=== PATIENT | male | born 1960 | race Native Hawaiian/Other Pacific Islander ===

== ENCOUNTER 2017-07-10 22:06 | Inpatient (IN) | payer BC ==
[2017-07-10 22:09] VITALS: BMI 24.3
--- NOTE | 2017-07-10 22:21 | C.PDOC ---
History Of Present Illness 56 year old male is brought to the ED by EMS. Patient was found unresponsive at his home, found by his family who called EMS. On arrival patient was found to be alternating between asystole and PEA. Patient was intubated with a 7.5 ET tube, received a total of 6 epis and patient is now on a ROSC. Further history unable to be obtained. Time Seen by Provider: 07/10/17 22:20 Chief Complaint (Nursing): Cardiac Arrest History Per: EMS Reason For Code Blue: Full Arrest Circumstances: Brought To ED By EMS Arrest Witnessed By: No One CPR Initiated Prior To MD Arrival?: Yes Down-Time Before ACLS: Mins (poss 30 min) Treatment Initiated Prior To MD Arrival: Yes: CPR, Intubation, IVF, ACLS Medication Initiation, IV Access Medications Given Prior To MD Arrival: Yes: Epinephrine (6) - Initial Findings Mentation: Unresponsive Respirations: None (Assisted) Pulse: Weak Rhythm: Asystole (alternating with PEA initially, now nsr) Past Medical History Reviewed: Historical Data, Nursing Documentation, Vital Signs Vital Signs: Last Vital Signs Temp 97.7 F 07/10/17 22:09 Pulse 67 07/10/17 22:09 Resp 14 07/10/17 22:09 BP 115/37 L 07/10/17 22:09 Pulse Ox 82 L 07/10/17 23:49 - Medical History PMH: No Chronic Diseases Surgical History: No Surg Hx Family History: States: Unknown Family Hx - Social History Hx Tobacco Use: No Hx Alcohol Use: (UNKNOIWN) Hx Substance Use: (UNKNOWN) Review Of Systems Review Of Systems: ROS cannot be obtained secondary to pt's inabilty to answer questions. Physical Exam - Physical Exam Appears: Other (Unresponsive ) Skin: Warm, Dry, Other (no obvious signs of trauma ) Head: Normacephalic, Laceration (4 cm over right eyelid/eyeborw) Eye(s): bilateral: Other (pupils fixed and dialated) Ear(s): Bilateral: Normal Nose: No Septal Hematoma Oral Mucosa: Moist Tongue: Normal Appearing Lips: Normal Appearing Neck: Supple Chest: Symmetrical Cardiovascular: Rhythm Regular Respiratory: Decreased Breath Sounds (throughout), No Rales, Rhonchi, No Wheezing Gastrointestinal/Abdominal: Soft, Distention Back: Normal Inspection Extremity: No Pedal Edema, No Swelling, Other (no signs of trauma) Extremity: Bilateral: No Pedal Edema Pulses: Left Carotid: Normal, Right Carotid: Normal, Left Femoral: Normal, Right Femoral: Normal, Left Dorsalis Pedis: Normal, Right Dorsalis Pedis: Normal Neurological/Psych: Other (unresponsive , intubated) Gait: Unable To Assess ED Course And Treatment - Laboratory Results Result Diagrams: 07/10/17 22:30 07/10/17 22:30 ECG: Interpreted By Me, Viewed By Me ECG Rhythm: Sinus Rhythm, Nonspecific Changes (bifascicular block) O2 Sat by Pulse Oximetry: 82 Pulse Ox Interpretation: Abnormal - Radiology CXR: Interpreted by Me, Viewed By Me CXR Interpretation: Yes: Infiltrates (rll), Cardiomegaly, Other (chf, ett in place) Progress Note: spoke with dr colon, filer repairer, and was sent his ekg- does not meet criteria for code heart. changed ET tube via bugie due to damaged baloon. Replaced with a 7.5 ETT. Pt observed with seizure like activity, blinking his eyes. 2 mg iv ativan given. spoke with dr howe-icu- will come and see the pt at bedside. dr howe at bedside with the patient and family. increased peep to 10. still with some bloody froth suctioned from the ett Disposition Discussed With .: Umberto Swan Comment: accepted the pt [facility] is service and took over the care at 11:40 PM Doctor Will See Patient In The: ED Counseled Patient/Family Regarding: Studies Performed, Diagnosis - Disposition Disposition: HOSPITALIZED Disposition Time: 22:21 Condition: CRITICAL - Clinical Impression Clinical Impression: Cardiac arrest, Fall, Laceration Critical Care Time - Critical Care Note Total Time (in mins): 95 Documented critical care: time excludes all time spent performing seperately billable procedures. - Scribe Statement The provider has reviewed the documentation as recorded by the Scribe Kevin Ackerman All medical record entries made by the Scribe were at my direction and personally dictated by me. I have reviewed the chart and agree that the record accurately reflects my personal performance of the history, physical exam, medical decision making, and the department course for this patient. I have also personally directed, reviewed, and agree with the discharge instructions and disposition. Addendum Addendum: 05/24/18 23:23 As per family who is at bed side patient was getting ready to go to work tonight at 21:00, as per family patient spaced out and proceeded to fall into a cabinet where all the china in it broke and he sustained his laceration. All events occurred at around 21:00 and medics where called at 21:02.
[2017-07-10 22:27] LABS: ABG ALLEN TEST POS; ARTERIAL BLOOD GAS O2 SAT 88.6 % (95-98); ARTERIAL BLOOD GAS PCO2 137 mm/Hg (35-45); ARTERIAL BLOOD GAS PH < 6.80 (7.35-7.45); ARTERIAL BLOOD GAS PO2 90 mm/Hg (80-100)
[2017-07-10 22:35] LABS: BASO # 0.1 K/uL (0.0-0.2); BASO % 0.5 % (0.0-2.0); EOS # 0.2 K/uL (0.0-0.7); EOS % 1.6 % (0.0-4.0); HEMOGLOBIN 13.3 g/dL (12.0-18.0); LYMPH % 60.3 % (20.0-40.0); MEAN CELL VOLUME 106.4 fL (80.0-94.0); MEAN CORPUSCULAR HEMOGLOBIN 34.5 pg (27.0-31.0); MEAN CORPUSCULAR HGB CONC 32.5 g/dL (33.0-37.0); MEAN PLATELET VOLUME 8.7 fL (7.2-11.7); MONO # 0.6 K/uL (0.0-0.8); MONO % 5.7 % (0.0-10.0); NEUT # 3.2 K/uL (1.8-7.0); NEUT % 31.9 % (50.0-75.0); NRBC % 0.1 % (0.0-2.0); RBC 3.84 Mil/uL (4.40-5.90); RED CELL DISTRIBUTION WIDTH 13.8 % (11.5-14.5); WHITE BLOOD COUNT 9.9 K/uL (4.8-10.8)
[2017-07-10 22:43] LABS: INR 1.4; PROTHROMBIN TIME 15.6 SECONDS (9.7-12.2)
[2017-07-10] MEDS ORDERED: Sodium Chloride 0.9% 1,000 ML ONE (22:44)
[2017-07-10 22:48] LABS: ALB/GLOB RATIO 0.9 (1.0-2.1); ALBUMIN 3.1 g/dL (3.5-5.0); ALT/SGPT 33 U/L (21-72); AST/SGOT 89 U/L (17-59); BLOOD UREA NITROGEN 12 mg/dL (9-20); CALCIUM 8.6 mg/dl (8.6-10.4); GFR AFRICAN-AMERICAN > 60; GFR NON-AFRICAN AMERICAN 52
[2017-07-10] MEDS ORDERED: Piperacillin/Tazobact 3.375 gm 100 ML IVPB STA (22:57)
[2017-07-10 23:00] LABS: CK-MB 3.18 ng/mL (0.0-3.38)
[2017-07-10] MEDS ORDERED: Vancomycin 1 GM 1 GM/250 ML BAG IVPB SCH (23:00)
[2017-07-10] MEDS ORDERED: Piperacillin/Tazobact 3.375 gm 100 ML IVPB ONE (23:34)
--- NOTE | 2017-07-10 23:54 | CT ---
EXAM: CT Head Without Intravenous Contrast CLINICAL HISTORY: 56 years old, male; Pain and signs and symptoms; Alteration of consciousness and other: Cardiac arrest; Other: Fall TECHNIQUE: Axial computed tomography images of the head/brain without intravenous contrast. All CT scans at this facility use one or more dose reduction techniques, viz.: automated exposure control; ma/kV adjustment per patient size (including targeted exams where dose is matched to indication; i.e. head); or iterative reconstruction technique. COMPARISON: No relevant prior studies available. FINDINGS: Brain: Minimal atrophy. No intracranial hemorrhage. No mass. Minimal decreased attenuation within periventricular white matter. No definite edema. Ventricles: No hydrocephalus. Bones/joints: No acute fracture. Soft tissues: RIGHT periorbital/maxillary soft tissue swelling. Sinuses: Scattered mild mucosal thickening. Mastoid air cells: No mastoid effusion. Orbits: Unremarkable as visualized. Tubes, lines and devices: Endotracheal tube. IMPRESSION: 1. Nonspecific white matter changes. Acute infarction may be CT occult within first 24 hours. If a focal deficit persists, consider followup CT or MRI for further evaluation. 2. Incidental/non-acute findings are described above.
[2017-07-11] MEDS ORDERED: Sodium Chloride 0.9% 1,000 ML IV SCH
[2017-07-11] MEDS ORDERED: Vancomycin 1 gm/NS 200 ml 1 GM/200 ML BAG IVPB SCH
[2017-07-11] MEDS ORDERED: Piperacill/Tazo 2.25gm in Dex 2.25 GM/50 ML BAG IVPB SCH
[2017-07-11 00:18] LABS: ABG ALLEN TEST POS; ARTERIAL BLOOD GAS HCO3 9.2 mmol/L (21-28); ARTERIAL BLOOD GAS O2 SAT 79.9 % (95-98); ARTERIAL BLOOD GAS PCO2 94 mm/Hg (35-45); ARTERIAL BLOOD GAS PH 6.85 (7.35-7.45); ARTERIAL BLOOD GAS PO2 59 mm/Hg (80-100); ARTERIAL BLOOD GAS TCO2 19.3 mmol/L (22-28)
[2017-07-11] MEDS ORDERED: Bacitracin 500 Units/gm Oint Foilpak UD ONE (00:20)
[2017-07-11] MEDS ORDERED: Sodium Bicarbonate (8.4%) 50 Meq Syringe IVP ONE (00:29)
--- NOTE | 2017-07-11 00:33 | CP.PCM.HP ---
<Vinny Rosenberg - Last Filed: 07/11/17 04:33> History of Present Illness - History of Present Illness History of Present Illness: This is a 56 yo male with past medical hx of "enlarged heart" presenting to [facility] ER s/p cardiac arrest. Pt has achieved ROSC and is being transferred to ICU. History obtained from of pt. Pt is unresponsive. says that his primary care doctor is Dr. Keller but that he has not seen him for some time. She states years ago he was diagnosed with an enlarged heart and was taking an unknown medication. then says he was told by Dr. Rice (cardiology) that he could stop taking the medication. 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 Pt was feeling unwell, under the weather, general malaise, not really acting himself. Recently pt started complaining of body aches. says that patient began taking unknown antibiotic. was unable to tell me who prescribed this antibiotic for him. Tonight shortly before arrival, states pt was in bed. Got up out of bed and "zoned out." Pt then collapsed and fell forward into glass cabinet and then fell onto tile floor. Pt was bleeding profusely and unresponsive. immediately ran to call 911. says that pt did not make any complaints such as chest pain, dizziness, lightheaded, before passing out. Denies sick contacts. Denies recent travel. Pt was found to be alternating btw asystole and PEA, got 6 rounds of epinephrine in the field. Pt was intubated in the field. However, when pt arrived at ER- pt was noted to have flail chest and pt was subsequently re intubated. Pt also began having seizures in ER and was given total of 4 mg IV ativan. Pt is now unresponsive, on mechanical ventilation, getting fluids, no pressors currently, and antibiotics. PMD: Dr. Keller (unclear how often pt sees him) Specialists: Dr. Rice in [place]- cardiology- last visit 15 yrs ago PMH: "enlarged heart" PSH: Hernia repair - 10 yrs ago Allergies: NKDA FH: Mother- heart disease Home meds: was recently taking unknown abx/advil prn/mucinex prn Social hx: Former smoker. quit 10 yrs ago. says he smoked sporadically. social drinker. denies drug use. Born in [facility]. 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 Pet fish. Fully mobile normally and able to perform all ADLs. Lives in [place], [place]. Insurance: self pay Previous ER/hospitalizations: No record of previous visits. Present on Admission - Present on Admission Any Indicators Present on Admission: No History of DVT/PE: No History of Uncontrolled Diabetes: No Urinary Catheter: No Decubitus Ulcer Present: No Review of Systems - Review of Systems Systems not reviewed;Unavailable: Intubated Past Patient History - Infectious Disease Hx of Infectious Diseases: None - Tetanus Immunizations Tetanus Immunization: Unknown - Past Medical History & Family History Past Medical History?: Yes Pertinent Family History: Heart disease in family - Past Social History Smoking Status: Former Smoker Chewing Tobacco Use: No Cigar Use: No Alcohol: Occasional Drugs: Denies Home Situation {Lives}: With Family Domestic Violence: Negative - CARDIAC Other/Comment: ENLARGED HEART PER [facility], .. - PSYCHIATRIC Hx Substance Use: (UNKNOWN) - SURGICAL HISTORY Hx Herniorrhaphy: Yes - ANESTHESIA Hx Anesthesia: Yes Meds Allergies/Adverse Reactions: Allergies Allergy/AdvReac Type Severity Reaction Status Date / Time No Known Allergies Allergy Verified 07/10/17 23:30 Physical Exam - Constitutional Appears: In Acute Distress Additional comments: unresponsive - Head Exam Head Exam: NORMOCEPHALIC. absent: ATRAUMATIC, NORMAL INSPECTION Additional comments: laceration 4 cm over right eyebrow - Eye Exam Pupil Exam: Fixed, Mydriatic Additional comments: pupils fixed and dilated - Neck Exam Neck exam: Positive for: Normal Inspection - Respiratory Exam Respiratory Exam: Decreased Breath Sounds, Respiratory Distress Additional comments: pt is intubated and mechanically ventilated - Cardiovascular Exam Cardiovascular Exam: REGULAR RHYTHM, +S1, +S2 - GI/Abdominal Exam GI & Abdominal Exam: Normal Bowel Sounds, Soft - Extremities Exam Extremities exam: Positive for: normal inspection, pedal pulses present - Neurological Exam Neurological exam: Altered - Psychiatric Exam Additional comments: Unable to assess- pt intubated - Skin Skin Exam: Dry, Intact, Normal Color, Warm Results - Vital Signs Recent Vital Signs: Last Vital Signs Temp 97.7 F 07/10/17 22:09 Pulse 67 07/10/17 22:09 Resp 14 07/10/17 22:09 BP 115/37 L 07/10/17 22:09 Pulse Ox 82 L 07/11/17 00:25 - Labs Result Diagrams: 07/10/17 22:30 07/10/17 22:30 Labs: Laboratory Results - last 24 hr 07/10/17 07/10/17 07/10/17 22:20 22:30 22:30 WBC 9.9 RBC 3.84 L Hgb 13.3 Hct 40.8 MCV 106.4 H MCH 34.5 H MCHC 32.5 L RDW 13.8 Plt Count 81 L MPV 8.7 Neut % (Auto) 31.9 L Lymph % (Auto) 60.3 H [place] % (Auto) 5.7 Eos % (Auto) 1.6 Baso % (Auto) 0.5 Neut # (Auto) 3.2 Lymph # (Auto) 6.0 [place] # (Auto) 0.6 Eos # (Auto) 0.2 Baso # (Auto) 0.1 Differential Comment PT 15.6 H INR 1.4 APTT 82 H Puncture Site Rra pCO2 137 H* pO2 90 HCO3 ABG pH < 6.80 L* ABG Total CO2 ABG O2 Saturation 88.6 L ABG Base Excess Jordan Test Pos ABG Potassium 4.0 A-a O2 Difference 452.0 Respiratory Index 5.0 Sodium 144.0 Chloride 109.0 H Glucose 216 H Lactate 12.8 H* Vent Mode Prvc Mechanical Rate 16 FiO2 100.0 Tidal Volume 500 PEEP 5 Crit Value Called To Dr barnes Crit Value Called By [facility] Crit Value Read Back Y Blood Gas Notified Time 7 Potassium Carbon Dioxide Anion Gap BUN Creatinine Est GFR ( Amer) Est GFR (Non-Af Amer) Random Glucose Calcium Total Bilirubin AST ALT Alkaline Phosphatase Total Creatine Kinase CK-MB (Mass) Troponin I Total Protein Albumin Globulin Albumin/Globulin Ratio Arterial Blood Potassium 4.0 Blood Type Antibody Screen 07/10/17 07/10/17 07/11/17 22:30 22:30 00:14 WBC RBC Hgb Hct MCV MCH MCHC RDW Plt Count MPV Neut % (Auto) Lymph % (Auto) [place] % (Auto) Eos % (Auto) Baso % (Auto) Neut # (Auto) Lymph # (Auto) [place] # (Auto) Eos # (Auto) Baso # (Auto) Differential Comment PT INR APTT Puncture Site R r pCO2 94 H* pO2 59 L HCO3 9.2 L* ABG pH 6.85 L* ABG Total CO2 19.3 L ABG O2 Saturation 79.9 L ABG Base Excess -18.9 L Jordan Test Pos ABG Potassium 3.6 A-a O2 Difference 537.0 Respiratory Index 9.1 Sodium 147 148.0 Chloride 108 H 119.0 H Glucose 118 H Lactate 3.3 H Vent Mode Prvc Mechanical Rate 20 FiO2 100.0 Tidal Volume 500 PEEP 5 Crit Value Called To Dr barnes Crit Value Called By Nuris lopez rt Crit Value Read Back Y Blood Gas Notified Time 20 Potassium 4.4 Carbon Dioxide 16 L Anion Gap 27 H BUN 12 Creatinine 1.4 Est GFR ( Amer) > 60 Est GFR (Non-Af Amer) 52 Random Glucose 203 H Calcium 8.6 Total Bilirubin 0.6 AST 89 H ALT 33 Alkaline Phosphatase 112 Total Creatine Kinase 207 H CK-MB (Mass) 3.18 Troponin I 0.0950 Total Protein 6.6 Albumin 3.1 L Globulin 3.5 Albumin/Globulin Ratio 0.9 L Arterial Blood Potassium 3.6 Blood Type O POSITIVE Antibody Screen Negative Assessment & Plan - Assessment and Plan (Free Text) Assessment: This is a 56 yo male with past medical hx of "enlarged heart" presenting to [facility] ER by ambulance with 1. S/P cardiac arrest -Ari coma scale 3 -downtime of close to 30 minutes -signs of clinically anoxic brain injury -CT of orbits negative -abdomen pelvis chest CT shows scattered diffuse interstitial and alveolar opacities, cirrhosis, anterior mediastinal hematoma and rib fx, hemopericardium , mild cardiomegaly, liver lesion, perinephric stranding, recommend mri -soft tissue neck CT negative -head ct shows non specific white matter changes -urine drug screen pending -initial rhythm alternating btw asystole and PEA -given 6 rounds of epinephrine in the field -on mechanical ventilation -ABG shows pCO2 98, pO2 80, bicarb 21.9, ph 7.08, on Fio2 100, -no leukoyctosis, no anemia on initial labs -1st trop negative -BNP ordered -MRSA screen -100 meq of sodium bicarb given -right IJ triple lumen catheter placed by Dr. Mejía. -hypothermia contraindicated at this time bc of internal bleeding 2. Seizures -given 4 mg IV ativan in ER 3. Thrombocytopenia -platelets of 81 -avoid blood thinners and anticoagulants -fresh frozen plasma ordered 4. Elevated INR - reports pt is only an occasional drinker. -also hepatic lesion present, needs further assessment 5. R/O community acquired pneumonia/aspiration pneumonia -zosyn 3.375 g q 6 hrs IVPB -vancomycin 1 g q 12 hrs IV -CXR shows multilobar infiltrate -possibly secondary to aspiration vs. bleeding in airway GI/DVT ppx -protonix 40 iv daily -mechanical DVT ppx -otherwise anticoagulation contraindicated due to internal bleeding Patient condition: critical discussed with Dr. Swan <Umberto Swan - Last Filed: 07/11/17 06:33> Results - Vital Signs Recent Vital Signs: Last Vital Signs Temp 97.5 F L 07/11/17 01:11 Pulse 111 H 07/11/17 05:00 Resp 30 H 07/11/17 05:00 BP 102/59 L 07/11/17 04:58 Pulse Ox 90 L 07/11/17 05:00 - Labs Result Diagrams: 07/11/17 05:53 07/10/17 22:30 Labs: Laboratory Results - last 24 hr 07/10/17 07/10/17 07/10/17 22:20 22:30 22:30 WBC 9.9 RBC 3.84 L Hgb 13.3 Hct 40.8 MCV 106.4 H MCH 34.5 H MCHC 32.5 L RDW 13.8 Plt Count 81 L MPV 8.7 Neut % (Auto) 31.9 L Lymph % (Auto) 60.3 H [place] % (Auto) 5.7 Eos % (Auto) 1.6 Baso % (Auto) 0.5 Neut # (Auto) 3.2 Lymph # (Auto) 6.0 [place] # (Auto) 0.6 Eos # (Auto) 0.2 Baso # (Auto) 0.1 Differential Comment PT 15.6 H INR 1.4 APTT 82 H Puncture Site Rra pCO2 137 H* pO2 90 HCO3 ABG pH < 6.80 L* ABG Total CO2 ABG O2 Saturation 88.6 L ABG Base Excess Jordan Test Pos ABG Potassium 4.0 A-a O2 Difference 452.0 Respiratory Index 5.0 Sodium 144.0 Chloride 109.0 H Glucose 216 H Lactate 12.8 H* Vent Mode Prvc Mechanical Rate 16 FiO2 100.0 Tidal Volume 500 PEEP 5 Crit Value Called To Dr barnes Crit Value Called By Bonilla silverio Crit Value Read Back Y Blood Gas Notified Time 2227 Potassium Carbon Dioxide Anion Gap BUN Creatinine Est GFR ( Amer) Est GFR (Non-Af Amer) Random Glucose Calcium Total Bilirubin AST ALT Alkaline Phosphatase Total Creatine Kinase CK-MB (Mass) Troponin I Total Protein Albumin Globulin Albumin/Globulin Ratio Arterial Blood Potassium 4.0 Blood Type Antibody Screen 07/10/17 07/10/17 07/11/17 22:30 22:30 00:14 WBC RBC Hgb Hct MCV MCH MCHC RDW Plt Count MPV Neut % (Auto) Lymph % (Auto) [place] % (Auto) Eos % (Auto) Baso % (Auto) Neut # (Auto) Lymph # (Auto) [place] # (Auto) Eos # (Auto) Baso # (Auto) Differential Comment PT INR APTT Puncture Site R r pCO2 94 H* pO2 59 L HCO3 9.2 L* ABG pH 6.85 L* ABG Total CO2 19.3 L ABG O2 Saturation 79.9 L ABG Base Excess -18.9 L Jordan Test Pos ABG Potassium 3.6 A-a O2 Difference 537.0 Respiratory Index 9.1 Sodium 147 148.0 Chloride 108 H 119.0 H Glucose 118 H Lactate 3.3 H Vent Mode Prvc Mechanical Rate 20 FiO2 100.0 Tidal Volume 500 PEEP 5 Crit Value Called To Dr barnes Crit Value Called By Nuris lopez rt Crit Value Read Back Y Blood Gas Notified Time 20 Potassium 4.4 Carbon Dioxide 16 L Anion Gap 27 H BUN 12 Creatinine 1.4 Est GFR ( Amer) > 60 Est GFR (Non-Af Amer) 52 Random Glucose 203 H Calcium 8.6 Total Bilirubin 0.6 AST 89 H ALT 33 Alkaline Phosphatase 112 Total Creatine Kinase 207 H CK-MB (Mass) 3.18 Troponin I 0.0950 Total Protein 6.6 Albumin 3.1 L Globulin 3.5 Albumin/Globulin Ratio 0.9 L Arterial Blood Potassium 3.6 Blood Type O POSITIVE Antibody Screen Negative 07/11/17 07/11/17 07/11/17 01:17 05:29 05:53 WBC 21.2 H D RBC 3.46 L Hgb 11.7 L Hct 35.0 MCV 100.9 H D MCH 33.8 H MCHC 33.5 RDW 13.3 Plt Count 96 L MPV 8.2 Neut % (Auto) 84.1 H Lymph % (Auto) 8.3 L [place] % (Auto) 7.4 Eos % (Auto) 0.1 Baso % (Auto) 0.1 Neut # (Auto) 17.9 H Lymph # (Auto) 1.8 [place] # (Auto) 1.6 H Eos # (Auto) 0.0 Baso # (Auto) 0.0 Differential Comment PT INR APTT Puncture Site R bra R brac pCO2 98 H* 70 H pO2 80 59 L HCO3 21.9 16.8 L ABG pH 7.08 L* 7.09 L* ABG Total CO2 32.1 H 23.3 ABG O2 Saturation 94.5 L 88.5 L ABG Base Excess -3.6 L -9.7 L Jordan Test Na Na ABG Potassium 4.7 6.1 H A-a O2 Difference 511.0 567.0 Respiratory Index 6.4 9.6 Sodium 145.0 143.0 Chloride 111.0 H 111.0 H Glucose 137 H 100 Lactate 3.4 H 5.5 H* Vent Mode Prvc Prvc Mechanical Rate 20 20 FiO2 100.0 100.0 Tidal Volume 500 500 PEEP 10 10 Crit Value [facility] curriculum advisory teacher Loan martinez curriculum advisory teacher Crit Value Called By Nuris lopez rt Nuris lopez rt Crit Value Read Back Y Y Blood Gas Notified Time 135 620 Potassium Carbon Dioxide Anion Gap BUN Creatinine Est GFR ( Amer) Est GFR (Non-Af Amer) Random Glucose Calcium Total Bilirubin AST ALT Alkaline Phosphatase Total Creatine Kinase CK-MB (Mass) Troponin I Total Protein Albumin Globulin Albumin/Globulin Ratio Arterial Blood Potassium 4.7 6.1 H Blood Type Antibody Screen Assessment & Plan - Date & Time Date: 07/11/17 (I have seen and examined the patient. I agree with the findings and plan of care as documented by Dr. Rosenberg. Patient with cardiac arrest. On Vent. Admit to ICU. Seizure in ED. Ativan given. Also with thrombocytopenia and pneumonia. Possible aspiration pneumonia. On vanco and zosyn. Further management as per ICU. Monitor for acute changes.) Time: 06:32 Attending/Attestation - Attestation I have personally seen and examined this patient.: Yes I have fully participated in the care of the patient.: Yes I have reviewed all pertinent clinical information: Yes
--- NOTE | 2017-07-11 01:27 | CT ---
EXAM: CT Orbits Without Intravenous Contrast CLINICAL HISTORY: 56 years old, male; Pain and injury or trauma and signs and symptoms; Fall; Initial encounter; Amputation, traumatic; Head/scalp and ocular (eye or eyeball); Right; Eye pain and face pain TECHNIQUE: Axial computed tomography images of the orbits without intravenous contrast. All CT scans at this facility use one or more dose reduction techniques, viz.: automated exposure control; ma/kV adjustment per patient size (including targeted exams where dose is matched to indication; i.e. head); or iterative reconstruction technique. Coronal and sagittal reformatted images were created and reviewed. COMPARISON: No relevant prior studies available. FINDINGS: Limitations: Motion artifact - mild. Orbits: Unremarkable as visualized. Sinuses: Scattered mild mucosal thickening. No air-fluid levels. Bones/joints: Degenerative changes of cervical spine. No acute fracture. Soft tissues: RIGHT periorbital/maxillary soft tissue swelling. Tubes, lines and devices: Endotracheal tube. Orogastric tube. IMPRESSION: 1. No fracture. 2. Incidental/non-acute findings are described above.
[2017-07-11 01:32] LABS: ARTERIAL BLOOD GAS HCO3 21.9 mmol/L (21-28); ARTERIAL BLOOD GAS O2 SAT 94.5 % (95-98); ARTERIAL BLOOD GAS PCO2 98 mm/Hg (35-45); ARTERIAL BLOOD GAS PH 7.08 (7.35-7.45); ARTERIAL BLOOD GAS PO2 80 mm/Hg (80-100); ARTERIAL BLOOD GAS TCO2 32.1 mmol/L (22-28)
--- NOTE | 2017-07-11 01:33 | CT ---
EXAM: CT Cervical Spine Without Intravenous Contrast CLINICAL HISTORY: 56 years old, male; Injury or trauma and signs and symptoms; Fall; Initial encounter; Amputation, traumatic; Other: Fall, cardiac arrest TECHNIQUE: Axial computed tomography images of the cervical spine without intravenous contrast. All CT scans at this facility use one or more dose reduction techniques, viz.: automated exposure control; ma/kV adjustment per patient size (including targeted exams where dose is matched to indication; i.e. head); or iterative reconstruction technique. Coronal and sagittal reformatted images were created and reviewed. COMPARISON: No relevant prior studies available. FINDINGS: Limitations: Lack of intravenous contrast. Motion artifact - mild. Vertebrae: No acute fracture. Probable bone island. Straightening of cervical spine. Discs/spinal canal/neural foramina: Mild degenerative disc disease within lower cervical spine. Moderate indentation thecal sac/cord lower cervical spine. Neuroforaminal narrowing within lower cervical spine. Soft tissues: Unremarkable. Sinuses: Scattered mild mucosal thickening. Oropharynx: Apparent prominence of left palatine tonsil. Clinical correlation is needed. Lung apices: See chest CT report for additional details. Tubes, lines and devices: Endotracheal tube. Orogastric tube. IMPRESSION: 1. No fracture. 2. Incidental/non-acute findings are described above.
[2017-07-11] MEDS: Piperacill/Tazo 3.375gm in Dex 3.375 GM/50 ML BAG IVPB SCH ×2 (01:36→06:17)
--- NOTE | 2017-07-11 02:01 | CT ---
EXAM: CT Chest Without Intravenous Contrast CLINICAL HISTORY: 56 years old, male; Pain and injury or trauma and signs and symptoms; Fall; Initial encounter; Other: S/P cpr, bleeding in et, abd distension; Unconscious; Abdominal pain; Chest pain TECHNIQUE: Axial computed tomography images of the chest without intravenous contrast. All CT scans at this facility use one or more dose reduction techniques, viz.: automated exposure control; ma/kV adjustment per patient size (including targeted exams where dose is matched to indication; i.e. head); or iterative reconstruction technique. Coronal and sagittal reformatted images were created and reviewed. COMPARISON: No relevant prior studies available. FINDINGS: Limitations: Lack of intravenous contrast. Motion artifact - mild to moderate. Lungs: Moderate scattered areas of patchy nodular and confluent airspace with groundglass opacities. Pleural space: No pneumothorax. No significant effusion. Heart: Mild cardiomegaly. Small hyperdense pericardial effusion. Mediastinum: Small hyperdense fluid within anterior mediastinum. Bones/joints: Limited evaluation for nondisplaced fracture. Mildly displaced fracture left third rib. Soft tissues: Minimal diffuse stranding within subcutaneous tissues. Vasculature: Unremarkable. No aneurysm. Lymph nodes: No pathologically enlarged lymph nodes. Tubes, lines and devices: NG tube, tip within body of stomach. Endotracheal tube, tip located approximately 1.7 cm from kalin. IMPRESSION: 1. Scattered diffuse interstitial and alveolar opacities. Consider inflammatory, infectious, traumatic, and/or neoplastic etiologies. 2. Probable anterior mediastinal hematoma and hemopericardium. 3. Left rib fracture. 4. Incidental/non-acute findings are described above. EXAM: CT Abdomen and Pelvis Without Intravenous Contrast CLINICAL HISTORY: 56 years old, male; Pain and injury or trauma and signs and symptoms; Fall; Initial encounter; Other: S/P cpr, bleeding in et, abd distension; Unconscious; Abdominal pain; Chest pain TECHNIQUE: Axial computed tomography images of the abdomen and pelvis without intravenous contrast. All CT scans at this facility use one or more dose reduction techniques, viz.: automated exposure control; ma/kV adjustment per patient size (including targeted exams where dose is matched to indication; i.e. head); or iterative reconstruction technique. Coronal and sagittal reformatted images were created and reviewed. COMPARISON: No relevant prior studies available. FINDINGS: Limitations: Lack of intravenous contrast. Motion artifact - mild to moderate. Lung bases: No acute findings. ABDOMEN: Liver: Lobulated contour. Heterogeneous. Suggestion of hypodense large lesion within right lobe, poorly evaluated due to motion. Gallbladder and bile ducts: Calcified gallstone. No significant ductal dilation. Pancreas: Unremarkable. No ductal dilation. Spleen: No splenomegaly. Adrenals: No mass. Kidneys and ureters: [id number] stranding about kidneys, nonspecific. Small calculus within LEFT kidney. No hydronephrosis. Apparent 0.3 x 0.3 x 0.3 cm calculus within LEFT mid ureter. Stomach and bowel: No definite mural thickening. No obstruction. PELVIS: Appendix: No findings to suggest acute appendicitis. Bladder: Jones catheter. Minimal air within bladder lumen, likely iatrogenic. Apparent mild bladder wall thickening. Incomplete distention, limiting evaluation. Mild stranding about bladder. No stones. Reproductive: Unremarkable as visualized. ABDOMEN and PELVIS: Intraperitoneal space: Small free fluid within abdomen. Trace free fluid within pelvis. No free air. Bones/joints: Early degenerative changes of spine. No displaced fracture. Soft tissues: Left testis within inguinal canal. Small umbilical hernia containing fat. Minimal diffuse stranding within subcutaneous tissues. Vasculature: Mild atherosclerotic disease. No aneurysm. Lymph nodes: No pathologically enlarged lymph nodes. IMPRESSION: 1. Cirrhosis 2. Apparent liver lesion. Traumatic or neoplastic etiologies not excluded. Recommend MRI. 3. Cholelithiasis. 4. Perinephric stranding. Traumatic or infectious etiologies not excluded. 5. LEFT mid ureteral calculus without significant hydroureteronephrosis. 6. Apparent mild bladder wall thickening with adjacent stranding. Traumatic or infectious etiologies not excluded. 7. Incidental/non-acute findings are described above.
[2017-07-11] MEDS ORDERED: Phytonadione 10 mg/ml Inj (Adult) SC STA (02:05)
[2017-07-11] MEDS ORDERED: Bacitracin Ointment 30 GM TUBE TOP SCH (03:00)
--- NOTE | 2017-07-11 03:45 | CP.PCM.CON ---
History of Present Illness - History of Present Illness History of Present Illness: 56 M brought in ER post cardiac arrest, patient according to was just bit tired form some fever and was on abx, has h/o enlarged heart but not on medications, got up from sleep to go for evening shift, got ready and then zoned out. Patient fell on the Hillman cabinet and then face forward on the floor , the [place]man and cabinet fell on the patient, he didn't respond, there was blood around. This happened about 9:05 pm, ems reached about 9:10pm. As per EMS patient was found PEA to asystole, patient received 6 rounds of epi, intubated in the field. Patient needed to be reintubated in ER due loose cuff, with help or bugie. CO2 retention noticed, patient was bleeding from ET tube, has laceration on his right eye brow with swelling. Patient is unresponsive, brief irratic movements, no purposeful movements. Has minimal gag, bleeding from ET tube noticed, bright red. OG tube passed, bilious contents obtained. CXR shows b /l infiltrates dd of pulm aspiration, contusion. Labs showed elevated MCV and low platelets will confirm alcohol history from the family. 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 Review of Systems - Review of Systems Systems not reviewed;Unavailable: Intubated All systems: reviewed and no additional remarkable complaints except (HPI) Past Patient History - Infectious Disease Hx of Infectious Diseases: None - Past Social History Smoking Status: Former Smoker - CARDIAC Other/Comment: ENLARGED HEART PER [facility], .. - PSYCHIATRIC Hx Substance Use: (UNKNOWN) - SURGICAL HISTORY Hx Herniorrhaphy: Yes - ANESTHESIA Hx Anesthesia: Yes Meds Allergies/Adverse Reactions: Allergies Allergy/AdvReac Type Severity Reaction Status Date / Time No Known Allergies Allergy Verified 07/10/17 23:30 - Medications Medications: Current Medications Vancomycin HCl (Vancomycin 1gm In Normal Saline Addvantage) 1 gm in 250 mls @ 166.667 mls/hr IVPB STAT JAIME PRN Reason: Protocol Sodium Chloride (Sodium Chloride 0.9%) 1,000 mls @ 100 mls/hr IV .Q10H JAIME Vancomycin/Sodium Chloride (Vancomycin 1 Gm/Ns 200 Ml) 1 gm in 200 mls @ 133 mls/hr IVPB Q12H JAIME PRN Reason: Protocol Stop: 07/16/17 00:01 Piperacillin Sod/Tazobactam Sod (Zosyn 3.375 Gm Iv Premix) 3.375 gm in 50 mls @ 100 mls/hr IVPB Q6H JAIME PRN Reason: Protocol Lorazepam (Ativan) 2 mg IVP STAT STA Stop: 07/10/17 22:46 Lorazepam (Ativan) 2 mg IVP ONCE ONE Stop: 07/10/17 23:06 Pantoprazole Sodium (Protonix Inj) 40 mg IVP DAILY [facility] Physical Exam - Additional Findings Additional findings: * HEENT No pupilary response, no corneal or conjunctival resposnse, 2 inch laceration with hematoma on the right eyebrow * Neck supple * Chest some petechae on the chest wall, rattling noise b/l, ET secretions, bright red, intermittent, weak gag present * PA distended * Ext no edema * 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, no unresponsive, irratic respirations * Skin normal turgor Results - Vital Signs Recent Vital Signs: Last Vital Signs Temp 97.7 F 07/10/17 22:09 Pulse 67 07/10/17 22:09 Resp 14 07/10/17 22:09 BP 115/37 L 07/10/17 22:09 Pulse Ox 82 L 07/10/17 23:49 - Labs Result Diagrams: 07/10/17 22:30 07/10/17 22:30 Labs: Laboratory Results - last 24 hr 07/10/17 07/10/17 07/10/17 22:20 22:30 22:30 WBC 9.9 RBC 3.84 L Hgb 13.3 Hct 40.8 MCV 106.4 H MCH 34.5 H MCHC 32.5 L RDW 13.8 Plt Count 81 L MPV 8.7 Neut % (Auto) 31.9 L Lymph % (Auto) 60.3 H Ross % (Auto) 5.7 Eos % (Auto) 1.6 Baso % (Auto) 0.5 Neut # (Auto) 3.2 Lymph # (Auto) 6.0 H Ross # (Auto) 0.6 Eos # (Auto) 0.2 Baso # (Auto) 0.1 Differential Comment PT 15.6 H INR 1.4 APTT 82 H Puncture Site Rra pCO2 137 H* pO2 90 ABG pH < 6.80 L* ABG O2 Saturation 88.6 L Jordan Test Pos ABG Potassium 4.0 A-a O2 Difference 452.0 Respiratory Index 5.0 Sodium 144.0 Chloride 109.0 H Glucose 216 H Lactate 12.8 H* Vent Mode Prvc Mechanical Rate 16 FiO2 100.0 Tidal Volume 500 PEEP 5 Crit Value Called To Dr barnes Crit Value Called By [facility] Crit Value Read Back Y Blood Gas Notified Time 2226 Potassium Carbon Dioxide Anion Gap BUN Creatinine Est GFR ( Amer) Est GFR (Non-Af Amer) Random Glucose Calcium Total Bilirubin AST ALT Alkaline Phosphatase Total Creatine Kinase CK-MB (Mass) Troponin I Total Protein Albumin Globulin Albumin/Globulin Ratio Arterial Blood Potassium 4.0 Blood Type Antibody Screen 07/10/17 07/10/17 22:30 22:30 WBC RBC Hgb Hct MCV MCH MCHC RDW Plt Count MPV Neut % (Auto) Lymph % (Auto) Ross % (Auto) Eos % (Auto) Baso % (Auto) Neut # (Auto) Lymph # (Auto) Ross # (Auto) Eos # (Auto) Baso # (Auto) Differential Comment PT INR APTT Puncture Site pCO2 pO2 ABG pH ABG O2 Saturation Jordan Test ABG Potassium A-a O2 Difference Respiratory Index Sodium 147 Chloride 108 H Glucose Lactate Vent Mode Mechanical Rate FiO2 Tidal Volume PEEP Crit Value Called To Crit Value Called By Crit Value Read Back Blood Gas Notified Time Potassium 4.4 Carbon Dioxide 16 L Anion Gap 27 H BUN 12 Creatinine 1.4 Est GFR ( Amer) > 60 Est GFR (Non-Af Amer) 52 Random Glucose 203 H Calcium 8.6 Total Bilirubin 0.6 AST 89 H ALT 33 Alkaline Phosphatase 112 Total Creatine Kinase 207 H CK-MB (Mass) 3.18 Troponin I 0.0950 Total Protein 6.6 Albumin 3.1 L Globulin 3.5 Albumin/Globulin Ratio 0.9 L Arterial Blood Potassium Blood Type O POSITIVE Antibody Screen Negative Assessment & Plan - Assessment and Plan (Free Text) Assessment: * Cardiac arrest, with downtime close to 30min, with clinically anoxic damage, dd of CO2 retention, reducing responsiveness * bleeding likely through ET, right eyebrow hematoma, pericardial bleeding from trauma, cpr, * Thrombocypenia, slight elevated INR, raised MCV may have hepatic etiology, according to not current drinker, ? hepatic tumor on non contrast CT * Multilobar infiltrate needing 100% fio2, due to aspiration vs bleeding in airway * ? history of enlarged heart as per family. Plan: * Appears poor prognosis with gcs close to 3, family in shock * Supportive care * transfusion of platelets, ffp * Empiric abx for pna * gi prophylaxis * Mechanical dvt prophylaxis * Central line inserted due to critical condition * Therapeutic hypothermia contraindicated due to active uncontrolable internal bleeding. * See orders for detail.
[2017-07-11] MEDS ORDERED: Sodium Chloride 0.9% 500 ML IV ONE (03:46)
--- NOTE | 2017-07-11 03:50 | PCM.PROC ---
Procedures Attestation:: I certify that I have explained the specified Operation(s) or Procedure(s), risks, benefits and reasonable alternatives to the Patient and/or other person responsible. The opportunity was given to ask questions and all questions answered - Central Line Placement Right Internal Jugular Triple Lumen Catheter Aseptic technique was employed throughout the procedure: Hand Hygiene done prior to procedure, Full sterile barriers (mask, hair cover, sterile gown, sterile gloves), Full body sterile drape, Chloraprep Antiseptic: 30 second prep for IJ or SC sites CVP Time Out Performed: Yes Pt. Placed on Pulse Ox Monitor: Yes Central Line Prep: Chlorhexidine-Alcohol Combination Amount of Anesthesia Used (mls): 0 Ultrasound Used for Placement: Yes Central Line Lumen Inserted: triple Central Line Length: 16 cm Post Procedure: Sutured in Place, Good Blood Return, All Ports Aspirated, Flushed, Capped, Sterile Dressing Applied Secured by: Suture Post procedure dressing: Clear vapor permeable, Chlorhexidine disc (Biopatch) Post Procedure X-Ray: Yes Immediate Complications: None
[2017-07-11 06:17] LABS: ARTERIAL BLOOD GAS HCO3 16.8 mmol/L (21-28); ARTERIAL BLOOD GAS O2 SAT 88.5 % (95-98); ARTERIAL BLOOD GAS PCO2 70 mm/Hg (35-45); ARTERIAL BLOOD GAS PH 7.09 (7.35-7.45); ARTERIAL BLOOD GAS PO2 59 mm/Hg (80-100); ARTERIAL BLOOD GAS TCO2 23.3 mmol/L (22-28)
[2017-07-11 06:17] LABS: BASO % 0.1 % (0.0-2.0); EOS % 0.1 % (0.0-4.0); HEMOGLOBIN 11.7 g/dL (12.0-18.0); LYMPH # 1.8 K/uL (1.0-4.3); LYMPH % 8.3 % (20.0-40.0); MEAN CELL VOLUME 100.9 fL (80.0-94.0); MEAN CORPUSCULAR HEMOGLOBIN 33.8 pg (27.0-31.0); MEAN CORPUSCULAR HGB CONC 33.5 g/dL (33.0-37.0); MEAN PLATELET VOLUME 8.2 fL (7.2-11.7); MONO # 1.6 K/uL (0.0-0.8); MONO % 7.4 % (0.0-10.0); NEUT # 17.9 K/uL (1.8-7.0); NEUT % 84.1 % (50.0-75.0); NRBC % 0.1 % (0.0-2.0); PLATELET COUNT 96 K/uL (130-400); RBC 3.46 Mil/uL (4.40-5.90); RED CELL DISTRIBUTION WIDTH 13.3 % (11.5-14.5); WHITE BLOOD COUNT 21.2 K/uL (4.8-10.8)
[2017-07-11 06:40] VITALS: TEMP 98.1
[2017-07-11 06:40] LABS: ALB/GLOB RATIO 0.8 (1.0-2.1); ALBUMIN 2.8 g/dL (3.5-5.0); CALCIUM 7.1 mg/dl (8.6-10.4)
--- NOTE | 2017-07-11 07:03 | RAD ---
HISTORY: post TLC insertion COMPARISON: Portable chest 07/10/2017. FINDINGS: Endotracheal tube is unchanged in position. A nasogastric tube is now placed entering into left upper quadrant abdomen with the side hole at the region of the gastric viscus. The tip is off the image. Further, a right center venous lines in place with tip turning the superior vena cava. LUNGS: A persistent patchy infiltrate is seen at the mid right lung zone extending inferiorly with limited patchy density now present the left apex and perihilar region. PLEURA: No significant pleural effusion identified, no pneumothorax apparent. CARDIOVASCULAR: Cardiac silhouette is stable, however, vascular pattern is obscured by infiltrate bilaterally. OSSEOUS STRUCTURES: No significant abnormalities. VISUALIZED UPPER ABDOMEN: Normal. OTHER FINDINGS: None. IMPRESSION: Interval nasogastric tube and right center venous line placements in good apparent position with persistent right perihilar infiltrate and interval left upper lobe/ perihilar infiltrate present at this time.
--- NOTE | 2017-07-11 07:32 | RAD ---
Chest x-ray single frontal view History: Intubated. Comparison: None available. Findings: Endotracheal tube extending into the midthoracic trachea approximately 2 centimeters above the kalin. Prominent patchy airspace consolidative changes in the right mid to lower lung zone as well as within the left suprahilar region and left lung base. Tortuous ectatic aorta. Cardiomegaly. Degenerative changes in the spine. Multiple overlying external wires and tubing. Impression: Endotracheal tube extending into the midthoracic trachea approximately 2 centimeters above the kalin. Prominent patchy airspace consolidative changes in the right mid to lower lung zone as well as within the left suprahilar region and left lung base. Tortuous ectatic aorta. Cardiomegaly. Degenerative changes in the spine.
[2017-07-11] MEDS ORDERED: Rocuronium 10 mg/ml (5 ml) ONE (07:39)
[2017-07-11] MEDS ORDERED: Dextrose 50% SYRINGE Inj (50 ml) ONE (07:39)
[2017-07-11] MEDS ORDERED: Magnesium Sulfate 1 gm/100 mL D5W IVPB ONE (07:39)
[2017-07-11] MEDS ORDERED: Calcium Gluconate 4.65 mEq/10 ml Inj ONE (07:39)
[2017-07-11] MEDS ORDERED: Sodium Bicarbonate (8.4%) 50 Meq Syringe ONE ×3 (07:39→09:14)
[2017-07-11] MEDS ORDERED: EPINEPHrine- 1 MG in Sodium Chloride 0.9% 250 ML IV PRN (07:40)
[2017-07-11 08:14] LABS: ARTERIAL BLOOD GAS HCO3 10.8 mmol/L (21-28); ARTERIAL BLOOD GAS O2 SAT 59.7 % (95-98); ARTERIAL BLOOD GAS PCO2 78 mm/Hg (35-45); ARTERIAL BLOOD GAS PH 6.95 (7.35-7.45); ARTERIAL BLOOD GAS PO2 38 mm/Hg (80-100); ARTERIAL BLOOD GAS TCO2 19.5 mmol/L (22-28)
[2017-07-11] MEDS ORDERED: DOBUTamine 500mg/250ml D5W 500 MG/250 ML BAG IV SCH (08:30)
[2017-07-11] MEDS ORDERED: Meropenem IV 1 gm in NS 50 ML IVPB ONE (08:33)
[2017-07-11] MEDS ORDERED: Sodium Bicarbonate (8.4%) 50 Meq Syringe IVP SCH (08:45)
[2017-07-11 08:47] LABS: BASO % 0.3 % (0.0-2.0); EOS % 0.1 % (0.0-4.0); LYMPH % 11.2 % (20.0-40.0); MEAN CELL VOLUME 102.7 fL (80.0-94.0); MEAN CORPUSCULAR HGB CONC 33.1 g/dL (33.0-37.0); MEAN PLATELET VOLUME 8.2 fL (7.2-11.7); MONO # 1.1 K/uL (0.0-0.8); NEUT % 82.4 % (50.0-75.0); NRBC % 0.2 % (0.0-2.0); RBC 2.76 Mil/uL (4.40-5.90); RED CELL DISTRIBUTION WIDTH 13.7 % (11.5-14.5); WHITE BLOOD COUNT 18.2 K/uL (4.8-10.8)
--- NOTE | 2017-07-11 08:49 | RAD ---
HISTORY: CP arrest COMPARISON: Portable chest 07/11/2017. FINDINGS: LUNGS: Endotracheal and nasogastric tubes do not appear significantly changed in position with right central venous line again evident. Increased infiltrates in the right perihilar and left upper or/perihilar lung zones once again. PLEURA: No significant pleural effusion identified, no pneumothorax apparent. CARDIOVASCULAR: Cardiac silhouette appears stable. Opacity from infiltrates obscures bilateral hilar vascular markings. Clinically correlate for potential CHF, however, no interstitial changes are identified that would support that diagnosis. OSSEOUS STRUCTURES: No significant abnormalities. VISUALIZED UPPER ABDOMEN: Normal. OTHER FINDINGS: None. IMPRESSION: Increased left upper lung zone and bilateral perihilar infiltrates. Stable cardiomegaly.
[2017-07-11 08:58] LABS: BANDS 15 % (0-2); LYMPHOCYTE 7 % (20-40); MONOCYTE 5 % (0-10); NEUTROPHIL 73 % (50-75); TOTAL CELLS COUNTED 100
[2017-07-11 08:59] LABS: PLATELET ESTIMATE DECREASED (NORMAL)
[2017-07-11 09:00] LABS: ANISOCYTOSIS SLIGHT; HYPOCHROMIC SLIGHT; POLYCHROMIC SLIGHT; TOXIC GRANULATION PRESENT
[2017-07-11 09:00] LABS: ALB/GLOB RATIO 0.9 (1.0-2.1); ALBUMIN 2.4 g/dL (3.5-5.0); CALCIUM 8.3 mg/dl (8.6-10.4); HEMOGLOBIN 9.4 g/dL (12.0-18.0)
[2017-07-11 09:04] LABS: ARTERIAL BLOOD GAS HCO3 10.5 mmol/L (21-28); ARTERIAL BLOOD GAS O2 SAT 48.6 % (95-98); ARTERIAL BLOOD GAS PCO2 92 mm/Hg (35-45); ARTERIAL BLOOD GAS PH 6.91 (7.35-7.45); ARTERIAL BLOOD GAS PO2 33 mm/Hg (80-100); ARTERIAL BLOOD GAS TCO2 21.2 mmol/L (22-28)
[2017-07-11 09:14] LABS: ARTERIAL BLOOD GAS HCO3 21.9 mmol/L (21-28); ARTERIAL BLOOD GAS O2 SAT 35.2 % (95-98); ARTERIAL BLOOD GAS PCO2 118 mm/Hg (35-45); ARTERIAL BLOOD GAS PH 7.05 (7.35-7.45); ARTERIAL BLOOD GAS PO2 28 mm/Hg (80-100); ARTERIAL BLOOD GAS TCO2 36.2 mmol/L (22-28)
[2017-07-11 09:49] LABS: TROPONIN I 11.6 ng/mL (0.00-0.120)
[2017-07-11 10:19] VITALS: BP 56/39
--- NOTE | 2017-07-11 10:45 | CP.PCM.CON ---
History of Present Illness - History of Present Illness History of Present Illness: Sawyer Mccall PGY1 Cardiology Consult Note for Dr. Cabrera Mr. Reece is a 56yo male with an unclear history of an "enlarged heart" with possible cardiomyopathy per who was brought in s/p PEA arrest. Per , the patient was not feeling well for the last couple of weeks and complained of overall fatigue, cough and cold symptoms, and had been taking an antibiotic ( but unsure of where he got it from); she also states that the patient was on a medication for his heart when he was in [place], but was told that he can come off of it when he moved to by Dr. Rice. 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 Per prior documentation, "patient was found PEA to asystole, patient received 6 rounds of epi, intubated in the field. Patient needed to be reintubated in ER due loose cuff, with help or bugie. CO2 retention noticed, patient was bleeding from ET tube, had laceration on his right eye brow with swelling. Patient was unresponsive, brief irratic movements, no purposeful movements. Had minimal gag , bleeding from ET tube noticed, bright red". ROSC was obtained in ED. Patient was transferred to ICU unit. EKG on presentation showed sinus rhythm w/ 1st degree AV block and bifascicular block. CT head showed no acute hemorrhage. Orbital CT showed no acute fractures. CT chest/avd/pelvis showed Scattered diffuse interstitial and alveolar opacities, cirrhosis, liver lesion, mural thickening of proximal esophagus and mild stranding within bruce hepatis about gallbladder. ABG at that time showed severe acidosis with pH <6.8 w/ CO2 retention and lactate 12.8. follow-up ABG showed mild improvement. Troponin was not elevated at this time. This morning, the patient coded and team responded and ACLS was started. Cardiology was consulted at this time. ABG showed severe acidosis, hypoxia and CO2 retention; lactate was again elevated. CBC showed leukocytosis w/ bandemia. CXR Showed Increased left upper lung zone and bilateral perihilar infiltrates. ROSC was obtained. Troponin and stat echo were ordered at this time. Patient coded again and ACLS was activated with multiple rounds of epinephrine given. ROSC was unable to be obtained. Discussion was had with the family by myself, ICU attending and palliative care, and understood poor prognosis and did not want him to suffer anymore. Please refer to ICU note/nurse's notes for full details. PM: as above PSH: hernia ALL: NKDA Shx: former smoker, social drinker Review of Systems - Review of Systems Systems not reviewed;Unavailable: Acuity of Condition, Unstable Vital Signs, Intubated Past Patient History - Infectious Disease Hx of Infectious Diseases: None - Tetanus Immunizations Tetanus Immunization: Unknown - Past Medical History & Family History Past Medical History?: Yes - Past Social History Smoking Status: Former Smoker Chewing Tobacco Use: No Cigar Use: No Alcohol: Occasional Drugs: Denies Home Situation {Lives}: With Family Domestic Violence: Negative - CARDIAC Other/Comment: ENLARGED HEART PER [facility], .. - PULMONARY Hx Respiratory Disorders: No - NEUROLOGICAL Hx Neurological Disorder: No - HEENT Hx HEENT Problems: No - RENAL Hx Chronic Kidney Disease: No - ENDOCRINE/METABOLIC Hx Endocrine Disorders: No - HEMATOLOGICAL/ONCOLOGICAL Hx Blood Disorders: No - INTEGUMENTARY Hx Dermatological Problems: No - MUSCULOSKELETAL/RHEUMATOLOGICAL Hx Falls: Yes - GASTROINTESTINAL Hx Gastrointestinal Disorders: No - GENITOURINARY/GYNECOLOGICAL Hx Genitourinary Disorders: No - PSYCHIATRIC Hx Psychophysiologic Disorder: No - SURGICAL HISTORY Hx Herniorrhaphy: Yes - ANESTHESIA Hx Anesthesia: Yes Meds Allergies/Adverse Reactions: Allergies Allergy/AdvReac Type Severity Reaction Status Date / Time No Known Allergies Allergy Verified 07/10/17 23:30 - Medications Medications: Current Medications Bacitracin (Bacitracin) 0 gm TOP BID JAIME Vancomycin/Sodium Chloride (Vancomycin 1 Gm/Ns 200 Ml) 1 gm in 200 mls @ 133 mls/hr IVPB Q12H JAIME PRN Reason: Protocol Stop: 07/16/17 00:01 Last Admin: 07/11/17 02:47 Dose: 133 mls/hr Piperacillin Sod/Tazobactam Sod (Zosyn 3.375 Gm Iv Premix) 3.375 gm in 50 mls @ 100 mls/hr IVPB Q6H JAIME PRN Reason: Protocol Last Admin: 07/11/17 06:17 Dose: 100 mls/hr Epinephrine HCl 1 mg/ Sodium (Chloride) 251 mls @ 15.06 mls/hr IV .[id number] PRN ; Protocol; 1 MCG/MIN PRN Reason: TITRATE PER MD ORDER Dobutamine HCl/Dextrose (Dobutamine/Dextrose 5% 500mg/250ml) 500 mg in 250 mls @ 6.753 mls/hr IV .Q24H JAIME; 2.5 MCG/KG/MIN PRN Reason: Protocol Last Admin: 07/11/17 08:30 Dose: 2.5 mcg/kg/min, 6.753 mls/hr Bumetanide 10 mg/ Sodium (Chloride) 100 mls @ 1 mls/hr IV .Q24H JAIME PRN Reason: 0.1 MG/HR Pantoprazole Sodium (Protonix Inj) 40 mg IVP DAILY JAIME Sodium Bicarbonate (Sodium Bicarbonate (8.4%) 50 Meq Syringe) 50 meq IVP Q2H JAIME Physical Exam - Additional Findings Additional findings: could not be obtained due to acuity of condition Results - Vital Signs Recent Vital Signs: Last Vital Signs Temp 98.1 F 07/11/17 06:00 Pulse 109 H 07/11/17 07:50 Resp 25 H 07/11/17 07:50 BP 56/39 L 07/11/17 08:30 Pulse Ox 59 L 07/11/17 07:50 - Labs Result Diagrams: 07/11/17 08:41 07/11/17 08:41 Labs: Laboratory Results - last 24 hr 07/10/17 07/10/17 07/10/17 22:20 22:30 22:30 WBC 9.9 RBC 3.84 L Hgb 13.3 Hct 40.8 MCV 106.4 H MCH 34.5 H MCHC 32.5 L RDW 13.8 Plt Count 81 L MPV 8.7 Neut % (Auto) 31.9 L Lymph % (Auto) 60.3 H [place] % (Auto) 5.7 Eos % (Auto) 1.6 Baso % (Auto) 0.5 Neut # (Auto) 3.2 Lymph # (Auto) 6.0 H [place] # (Auto) 0.6 Eos # (Auto) 0.2 Baso # (Auto) 0.1 Neutrophils % (Manual) Band Neutrophils % Lymphocytes % (Manual) Monocytes % (Manual) Differential Comment Toxic Granulation Platelet Estimate Polychromasia Hypochromasia (manual) Anisocytosis (manual) Macrocytosis (manual) PT 15.6 H INR 1.4 APTT 82 H Puncture Site Rra pCO2 137 H* pO2 90 HCO3 ABG pH < 6.80 L* ABG Total CO2 ABG O2 Saturation 88.6 L ABG Base Excess Jordan Test Pos ABG Potassium 4.0 A-a O2 Difference 452.0 Respiratory Index 5.0 Sodium 144.0 Chloride 109.0 H Glucose 216 H Lactate 12.8 H* Vent Mode Prvc Mechanical Rate 16 FiO2 100.0 Tidal Volume 500 PEEP 5 Crit Value Called To Dr barnes Crit Value Called By Bonilla silverio Crit Value Read Back Y Blood Gas Notified Time 2227 Potassium Carbon Dioxide Anion Gap BUN Creatinine Est GFR ( Amer) Est GFR (Non-Af Amer) POC Glucose (mg/dL) Random Glucose Calcium Phosphorus Magnesium Total Bilirubin AST ALT Alkaline Phosphatase Total Creatine Kinase CK-MB (Mass) Troponin I Total Protein Albumin Globulin Albumin/Globulin Ratio Arterial Blood Potassium 4.0 Blood Type Antibody Screen 07/10/17 07/10/17 07/11/17 22:30 22:30 00:14 WBC RBC Hgb Hct MCV MCH MCHC RDW Plt Count MPV Neut % (Auto) Lymph % (Auto) [place] % (Auto) Eos % (Auto) Baso % (Auto) Neut # (Auto) Lymph # (Auto) [place] # (Auto) Eos # (Auto) Baso # (Auto) Neutrophils % (Manual) Band Neutrophils % Lymphocytes % (Manual) Monocytes % (Manual) Differential Comment Toxic Granulation Platelet Estimate Polychromasia Hypochromasia (manual) Anisocytosis (manual) Macrocytosis (manual) PT INR APTT Puncture Site R r pCO2 94 H* pO2 59 L HCO3 9.2 L* ABG pH 6.85 L* ABG Total CO2 19.3 L ABG O2 Saturation 79.9 L ABG Base Excess -18.9 L Jordan Test Pos ABG Potassium 3.6 A-a O2 Difference 537.0 Respiratory Index 9.1 Sodium 147 148.0 Chloride 108 H 119.0 H Glucose 118 H Lactate 3.3 H Vent Mode Prvc Mechanical Rate 20 FiO2 100.0 Tidal Volume 500 PEEP 5 Crit Value Called To Dr barnes Crit Value Called By Nuris lopez rt Crit Value Read Back Y Blood Gas Notified Time 20 Potassium 4.4 Carbon Dioxide 16 L Anion Gap 27 H BUN 12 Creatinine 1.4 Est GFR ( Amer) > 60 Est GFR (Non-Af Amer) 52 POC Glucose (mg/dL) Random Glucose 203 H Calcium 8.6 Phosphorus Magnesium Total Bilirubin 0.6 AST 89 H ALT 33 Alkaline Phosphatase 112 Total Creatine Kinase 207 H CK-MB (Mass) 3.18 Troponin I 0.0950 Total Protein 6.6 Albumin 3.1 L Globulin 3.5 Albumin/Globulin Ratio 0.9 L Arterial Blood Potassium 3.6 Blood Type O POSITIVE Antibody Screen Negative 07/11/17 07/11/17 07/11/17 01:17 05:29 05:53 WBC 21.2 H D RBC 3.46 L Hgb 11.7 L Hct 35.0 MCV 100.9 H D MCH 33.8 H MCHC 33.5 RDW 13.3 Plt Count 96 L MPV 8.2 Neut % (Auto) 84.1 H Lymph % (Auto) 8.3 L [place] % (Auto) 7.4 Eos % (Auto) 0.1 Baso % (Auto) 0.1 Neut # (Auto) 17.9 H Lymph # (Auto) 1.8 [place] # (Auto) 1.6 H Eos # (Auto) 0.0 Baso # (Auto) 0.0 Neutrophils % (Manual) 73 Band Neutrophils % 15 H* Lymphocytes % (Manual) 7 L Monocytes % (Manual) 5 Differential Comment Toxic Granulation Present Platelet Estimate Decreased L Polychromasia Slight Hypochromasia (manual) Slight Anisocytosis (manual) Slight Macrocytosis (manual) Slight PT INR APTT Puncture Site R bra R brac pCO2 98 H* 70 H pO2 80 59 L HCO3 21.9 16.8 L ABG pH 7.08 L* 7.09 L* ABG Total CO2 32.1 H 23.3 ABG O2 Saturation 94.5 L 88.5 L ABG Base Excess -3.6 L -9.7 L Jordan Test Na Na ABG Potassium 4.7 6.1 H A-a O2 Difference 511.0 567.0 Respiratory Index 6.4 9.6 Sodium 145.0 143.0 Chloride 111.0 H 111.0 H Glucose 137 H 100 Lactate 3.4 H 5.5 H* Vent Mode Prvc Prvc Mechanical Rate 20 20 FiO2 100.0 100.0 Tidal Volume 500 500 PEEP 10 10 Crit Value Called To [facility] agricultural equipment sales manager Loan martinez agricultural equipment sales manager Crit Value Called By Nuris lopez rt Nuris lopez rt Crit Value Read Back Y Y Blood Gas Notified Time 135 620 Potassium Carbon Dioxide Anion Gap BUN Creatinine Est GFR ( Amer) Est GFR (Non-Af Amer) POC Glucose (mg/dL) Random Glucose Calcium Phosphorus Magnesium Total Bilirubin AST ALT Alkaline Phosphatase Total Creatine Kinase CK-MB (Mass) Troponin I Total Protein Albumin Globulin Albumin/Globulin Ratio Arterial Blood Potassium 4.7 6.1 H Blood Type Antibody Screen 07/11/17 07/11/17 07/11/17 05:55 07:48 08:10 WBC RBC Hgb Hct MCV MCH MCHC RDW Plt Count MPV Neut % (Auto) Lymph % (Auto) [place] % (Auto) Eos % (Auto) Baso % (Auto) Neut # (Auto) Lymph # (Auto) [place] # (Auto) Eos # (Auto) Baso # (Auto) Neutrophils % (Manual) Band Neutrophils % Lymphocytes % (Manual) Monocytes % (Manual) Differential Comment Toxic Granulation Platelet Estimate Polychromasia Hypochromasia (manual) Anisocytosis (manual) Macrocytosis (manual) PT INR APTT Puncture Site L Line pCO2 118 H* 78 H* pO2 28 L* 38 L* HCO3 21.9 10.8 L ABG pH 7.05 L* 6.95 L* ABG Total CO2 36.2 H 19.5 L ABG O2 Saturation 35.2 L 59.7 L ABG Base Excess -1.4 -16.1 L [place] Test Na Na ABG Potassium 5.3 H 3.3 L A-a O2 Difference 538.0 578.0 Respiratory Index 19.2 15.2 Sodium 145 152.0 H 155.0 H Chloride 110 H 111.0 H 119.0 H Glucose 54 L 93 Lactate 11.9 H* 10.3 H* Vent Mode Prvc Mechanical Rate 26 FiO2 100.0 100.0 Tidal Volume 600 PEEP 10 Crit Value Called To Dr binh purcell Crit Value Called By Jamaal schmitt procedure analyst Jamaal schmitt procedure analyst Crit Value Read Back Y Y Blood Gas Notified Time 750 815 Potassium 5.3 H Carbon Dioxide 24 Anion Gap 17 BUN 16 Creatinine 2.1 H Est GFR ( Amer) 40 Est GFR (Non-Af Amer) 33 POC Glucose (mg/dL) Random Glucose 97 Calcium 7.1 L Phosphorus 8.9 H Magnesium 2.1 Total Bilirubin 1.0 AST 154 H D ALT 54 Alkaline Phosphatase 117 Total Creatine Kinase CK-MB (Mass) Troponin I Total Protein 6.2 L Albumin 2.8 L Globulin 3.4 Albumin/Globulin Ratio 0.8 L Arterial Blood Potassium 5.3 H 3.3 L Blood Type Antibody Screen 07/11/17 07/11/17 07/11/17 08:41 08:41 08:42 WBC 18.2 H RBC 2.76 L Hgb 9.4 L D Hct 28.3 L MCV 102.7 H MCH 34.0 H MCHC 33.1 RDW 13.7 Plt Count 78 L MPV 8.2 Neut % (Auto) 82.4 H Lymph % (Auto) 11.2 L [place] % (Auto) 6.0 Eos % (Auto) 0.1 Baso % (Auto) 0.3 Neut # (Auto) 15.0 H Lymph # (Auto) 2.0 [place] # (Auto) 1.1 H Eos # (Auto) 0.0 Baso # (Auto) 0.0 Neutrophils % (Manual) Band Neutrophils % Lymphocytes % (Manual) Monocytes % (Manual) Differential Comment Toxic Granulation Platelet Estimate Polychromasia Hypochromasia (manual) Anisocytosis (manual) Macrocytosis (manual) PT INR APTT Puncture Site pCO2 pO2 HCO3 ABG pH ABG Total CO2 ABG O2 Saturation ABG Base Excess Jordan Test ABG Potassium A-a O2 Difference Respiratory Index Sodium 156 H Chloride 106 Glucose Lactate Vent Mode Mechanical Rate FiO2 Tidal Volume PEEP Crit Value Called To Crit Value Called By Crit Value Read Back Blood Gas Notified Time Potassium 4.2 Carbon Dioxide 27 Anion Gap 27 H BUN 17 Creatinine 2.6 H Est GFR ( Amer) 31 Est GFR (Non-Af Amer) 26 POC Glucose (mg/dL) 99 Random Glucose 97 Calcium 8.3 L Phosphorus 9.4 H Magnesium 2.5 H Total Bilirubin 0.9 AST 156 H ALT 44 Alkaline Phosphatase 74 Total Creatine Kinase CK-MB (Mass) Troponin I 11.6000 H* Total Protein 5.0 L Albumin 2.4 L Globulin 2.6 Albumin/Globulin Ratio 0.9 L Arterial Blood Potassium Blood Type Antibody Screen 07/11/17 09:00 WBC RBC Hgb Hct MCV MCH MCHC RDW Plt Count MPV Neut % (Auto) Lymph % (Auto) [place] % (Auto) Eos % (Auto) Baso % (Auto) Neut # (Auto) Lymph # (Auto) [place] # (Auto) Eos # (Auto) Baso # (Auto) Neutrophils % (Manual) Band Neutrophils % Lymphocytes % (Manual) Monocytes % (Manual) Differential Comment Toxic Granulation Platelet Estimate Polychromasia Hypochromasia (manual) Anisocytosis (manual) Macrocytosis (manual) PT INR APTT Puncture Site Line pCO2 92 H* pO2 33 L* HCO3 10.5 L ABG pH 6.91 L* ABG Total CO2 21.2 L ABG O2 Saturation 48.6 L ABG Base Excess -16.0 L [place] Test Na ABG Potassium 2.9 L A-a O2 Difference 565.0 Respiratory Index 17.1 Sodium 156.0 H Chloride 118.0 H Glucose 64 L Lactate 13.7 H* Vent Mode Prvc Mechanical Rate 26 FiO2 100.0 Tidal Volume 600 PEEP 10 Crit Value Called To Dr hardeep purcell Crit Value Called By Dianna hickman it applications developer Crit Value Read Back Y Blood Gas Notified Time 904 Potassium Carbon Dioxide Anion Gap BUN Creatinine Est GFR ( Amer) Est GFR (Non-Af Amer) POC Glucose (mg/dL) Random Glucose Calcium Phosphorus Magnesium Total Bilirubin AST ALT Alkaline Phosphatase Total Creatine Kinase CK-MB (Mass) Troponin I Total Protein Albumin Globulin Albumin/Globulin Ratio Arterial Blood Potassium 2.9 L Blood Type Antibody Screen Assessment & Plan - Assessment and Plan (Free Text) Assessment: 56yo M with a PMH of questionable cardiomyopathy and diastolic dysfunction, who presented s/p PE arrest, ROSC was obtained but patient coded again multiple times without ROSC being obtained. cardiac arrest - ROSC could not be obtained and patient ceased - comfort care to family - Echo pending official read - attempted to contact Dr. Rice but no answer - management per ICU team Patient was reviewed and discussed with Dr. Cabrera
--- NOTE | 2017-07-11 10:52 | PCM.PROC ---
Procedures Attestation:: I certify that I have explained the specified Operation(s) or Procedure(s), risks, benefits and reasonable alternatives to the Patient and/or other person responsible. The opportunity was given to ask questions and all questions answered - Arterial Line Left Radial Aseptic technique was employed throughout the procedure: Hand Hygiene done prior to procedure, Full sterile barriers (mask, hair cover, sterile gown, sterile gloves), Chloraprep Antiseptic: 30 second prep for IJ or SC sites Time Out Performed: Yes Pt. placed on Pulse Ox Monitor: Yes Technique Used: Guide Wire Technique Secured by: Suture Post procedure dressing: Chlorhexidine disc (Biopatch) Patient Tolerated Procedure: no complications Immediate Complications: none
--- NOTE | 2017-07-11 11:01 | CP.PCM.CON ---
History of Present Illness - History of Present Illness History of Present Illness: Palliative consult requested by Doctor Clarke for goals of care discussion Patient is a 56 yo male admitted from home after sudden fall. 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 called 911 . Patient was found Asystolic on field, CPR initiated, intubated and brought to ED, than to ICU. It is estimated 30 min down time according to reports and patient is diagnosed with severe anoxic injury post cardiac arrest. The CT abdomen showed liver lesions At ICU patient was Coded at least 4 times since this morning. Palliative care was called to support family and discuss withdrawal of interventions as harm was outweighing benefices. PMH: enlarged heart, resent bad cold, was on antibiotics Soc. Hx. , lives with and daughter, denied drinking Fam. Hx: Father from HTN Review of Systems - Review of Systems All systems: reviewed and no additional remarkable complaints except Review of Systems: CPR at present Past Patient History - Infectious Disease Hx of Infectious Diseases: None - Tetanus Immunizations Tetanus Immunization: Unknown - Past Medical History & Family History Past Medical History?: Yes - Past Social History Smoking Status: Former Smoker Chewing Tobacco Use: No Cigar Use: No Alcohol: Occasional Drugs: Denies Home Situation {Lives}: With Family Domestic Violence: Negative - CARDIAC Other/Comment: ENLARGED HEART PER [facility], .. - MUSCULOSKELETAL/RHEUMATOLOGICAL Hx Falls: Yes - PSYCHIATRIC Hx Substance Use: (UNKNOWN) - SURGICAL HISTORY Hx Herniorrhaphy: Yes - ANESTHESIA Hx Anesthesia: Yes Meds Allergies/Adverse Reactions: Allergies Allergy/AdvReac Type Severity Reaction Status Date / Time No Known Allergies Allergy Verified 07/10/17 23:30 - Medications Medications: Current Medications Bacitracin (Bacitracin) 0 gm TOP BID JAIME Vancomycin/Sodium Chloride (Vancomycin 1 Gm/Ns 200 Ml) 1 gm in 200 mls @ 133 mls/hr IVPB Q12H JAIME PRN Reason: Protocol Stop: 07/16/17 00:01 Last Admin: 07/11/17 02:47 Dose: 133 mls/hr Piperacillin Sod/Tazobactam Sod (Zosyn 3.375 Gm Iv Premix) 3.375 gm in 50 mls @ 100 mls/hr IVPB Q6H JAIME PRN Reason: Protocol Last Admin: 07/11/17 06:17 Dose: 100 mls/hr Epinephrine HCl 1 mg/ Sodium (Chloride) 251 mls @ 15.06 mls/hr IV .[id number] PRN ; Protocol; 1 MCG/MIN PRN Reason: TITRATE PER MD ORDER Dobutamine HCl/Dextrose (Dobutamine/Dextrose 5% 500mg/250ml) 500 mg in 250 mls @ 6.753 mls/hr IV .Q24H JAIME; 2.5 MCG/KG/MIN PRN Reason: Protocol Last Admin: 07/11/17 08:30 Dose: 2.5 mcg/kg/min, 6.753 mls/hr Bumetanide 10 mg/ Sodium (Chloride) 100 mls @ 1 mls/hr IV .Q24H JAIME PRN Reason: 0.1 MG/HR Pantoprazole Sodium (Protonix Inj) 40 mg IVP DAILY JAIME Sodium Bicarbonate (Sodium Bicarbonate (8.4%) 50 Meq Syringe) 50 meq IVP Q2H JAIME Physical Exam - Constitutional Appears: No Acute Distress - Head Exam Additional comments: right orbital hematoma - Eye Exam Pupil Exam: Fixed - ENT Exam Additional comments: Intubated - Respiratory Exam Additional comments: on MV - Cardiovascular Exam Cardiovascular Exam: Irregular Rhythm Additional comments: CPR in progress - Rectal Exam Rectal Exam: Deferred - Extremities Exam Extremities exam: Positive for: normal inspection - Back Exam Back exam: NORMAL INSPECTION - Neurological Exam Neurological exam: Motor Sensory Deficit - Psychiatric Exam Psychiatric exam: Flat Affect - Skin Skin Exam: Pallor Results - Vital Signs Recent Vital Signs: Last Vital Signs Temp 98.1 F 07/11/17 06:00 Pulse 109 H 07/11/17 07:50 Resp 25 H 07/11/17 07:50 BP 56/39 L 07/11/17 08:30 Pulse Ox 59 L 07/11/17 07:50 - Labs Result Diagrams: 07/11/17 08:41 07/11/17 08:41 Labs: Laboratory Results - last 24 hr 07/10/17 07/10/17 07/10/17 22:20 22:30 22:30 WBC 9.9 RBC 3.84 L Hgb 13.3 Hct 40.8 MCV 106.4 H MCH 34.5 H MCHC 32.5 L RDW 13.8 Plt Count 81 L MPV 8.7 Neut % (Auto) 31.9 L Lymph % (Auto) 60.3 H Mcclain % (Auto) 5.7 Eos % (Auto) 1.6 Baso % (Auto) 0.5 Neut # (Auto) 3.2 Lymph # (Auto) 6.0 H Mcclain # (Auto) 0.6 Eos # (Auto) 0.2 Baso # (Auto) 0.1 Neutrophils % (Manual) Band Neutrophils % Lymphocytes % (Manual) Monocytes % (Manual) Differential Comment Toxic Granulation Platelet Estimate Polychromasia Hypochromasia (manual) Anisocytosis (manual) Macrocytosis (manual) PT 15.6 H INR 1.4 APTT 82 H Puncture Site Rra pCO2 137 H* pO2 90 HCO3 ABG pH < 6.80 L* ABG Total CO2 ABG O2 Saturation 88.6 L ABG Base Excess Jordan Test Pos ABG Potassium 4.0 A-a O2 Difference 452.0 Respiratory Index 5.0 Sodium 144.0 Chloride 109.0 H Glucose 216 H Lactate 12.8 H* Vent Mode Prvc Mechanical Rate 16 FiO2 100.0 Tidal Volume 500 PEEP 5 Crit Value Called To Dr barnes Crit Value Called By [facility] Crit Value Read Back Y Blood Gas Notified Time 2227 Potassium Carbon Dioxide Anion Gap BUN Creatinine Est GFR ( Amer) Est GFR (Non-Af Amer) POC Glucose (mg/dL) Random Glucose Calcium Phosphorus Magnesium Total Bilirubin AST ALT Alkaline Phosphatase Total Creatine Kinase CK-MB (Mass) Troponin I Total Protein Albumin Globulin Albumin/Globulin Ratio Arterial Blood Potassium 4.0 Blood Type Antibody Screen 07/10/17 07/10/17 07/11/17 22:30 22:30 00:14 WBC RBC Hgb Hct MCV MCH MCHC RDW Plt Count MPV Neut % (Auto) Lymph % (Auto) Mcclain % (Auto) Eos % (Auto) Baso % (Auto) Neut # (Auto) Lymph # (Auto) Mcclain # (Auto) Eos # (Auto) Baso # (Auto) Neutrophils % (Manual) Band Neutrophils % Lymphocytes % (Manual) Monocytes % (Manual) Differential Comment Toxic Granulation Platelet Estimate Polychromasia Hypochromasia (manual) Anisocytosis (manual) Macrocytosis (manual) PT INR APTT Puncture Site R r pCO2 94 H* pO2 59 L HCO3 9.2 L* ABG pH 6.85 L* ABG Total CO2 19.3 L ABG O2 Saturation 79.9 L ABG Base Excess -18.9 L Jordan Test Pos ABG Potassium 3.6 A-a O2 Difference 537.0 Respiratory Index 9.1 Sodium 147 148.0 Chloride 108 H 119.0 H Glucose 118 H Lactate 3.3 H Vent Mode Prvc Mechanical Rate 20 FiO2 100.0 Tidal Volume 500 PEEP 5 Crit Value Called To Dr barnes Crit Value Called By Nuris lopez rt Crit Value Read Back Y Blood Gas Notified Time 20 Potassium 4.4 Carbon Dioxide 16 L Anion Gap 27 H BUN 12 Creatinine 1.4 Est GFR ( Amer) > 60 Est GFR (Non-Af Amer) 52 POC Glucose (mg/dL) Random Glucose 203 H Calcium 8.6 Phosphorus Magnesium Total Bilirubin 0.6 AST 89 H ALT 33 Alkaline Phosphatase 112 Total Creatine Kinase 207 H CK-MB (Mass) 3.18 Troponin I 0.0950 Total Protein 6.6 Albumin 3.1 L Globulin 3.5 Albumin/Globulin Ratio 0.9 L Arterial Blood Potassium 3.6 Blood Type O POSITIVE Antibody Screen Negative 07/11/17 07/11/17 07/11/17 01:17 05:29 05:53 WBC 21.2 H D RBC 3.46 L Hgb 11.7 L Hct 35.0 MCV 100.9 H D MCH 33.8 H MCHC 33.5 RDW 13.3 Plt Count 96 L MPV 8.2 Neut % (Auto) 84.1 H Lymph % (Auto) 8.3 L Mcclain % (Auto) 7.4 Eos % (Auto) 0.1 Baso % (Auto) 0.1 Neut # (Auto) 17.9 H Lymph # (Auto) 1.8 Mcclain # (Auto) 1.6 H Eos # (Auto) 0.0 Baso # (Auto) 0.0 Neutrophils % (Manual) 73 Band Neutrophils % 15 H* Lymphocytes % (Manual) 7 L Monocytes % (Manual) 5 Differential Comment Toxic Granulation Present Platelet Estimate Decreased L Polychromasia Slight Hypochromasia (manual) Slight Anisocytosis (manual) Slight Macrocytosis (manual) Slight PT INR APTT Puncture Site R bra R brac pCO2 98 H* 70 H pO2 80 59 L HCO3 21.9 16.8 L ABG pH 7.08 L* 7.09 L* ABG Total CO2 32.1 H 23.3 ABG O2 Saturation 94.5 L 88.5 L ABG Base Excess -3.6 L -9.7 L Jordan Test Na Na ABG Potassium 4.7 6.1 H A-a O2 Difference 511.0 567.0 Respiratory Index 6.4 9.6 Sodium 145.0 143.0 Chloride 111.0 H 111.0 H Glucose 137 H 100 Lactate 3.4 H 5.5 H* Vent Mode Prvc Prvc Mechanical Rate 20 20 FiO2 100.0 100.0 Tidal Volume 500 500 PEEP 10 10 Crit Value [facility] agriculture extension specialist Loan martinez agriculture extension specialist Crit Value Called By Nuris lopez rt Nuris lopez rt Crit Value Read Back Y Y Blood Gas Notified Time 135 620 Potassium Carbon Dioxide Anion Gap BUN Creatinine Est GFR ( Amer) Est GFR (Non-Af Amer) POC Glucose (mg/dL) Random Glucose Calcium Phosphorus Magnesium Total Bilirubin AST ALT Alkaline Phosphatase Total Creatine Kinase CK-MB (Mass) Troponin I Total Protein Albumin Globulin Albumin/Globulin Ratio Arterial Blood Potassium 4.7 6.1 H Blood Type Antibody Screen 07/11/17 07/11/17 07/11/17 05:55 07:48 08:10 WBC RBC Hgb Hct MCV MCH MCHC RDW Plt Count MPV Neut % (Auto) Lymph % (Auto) Mcclain % (Auto) Eos % (Auto) Baso % (Auto) Neut # (Auto) Lymph # (Auto) Mcclain # (Auto) Eos # (Auto) Baso # (Auto) Neutrophils % (Manual) Band Neutrophils % Lymphocytes % (Manual) Monocytes % (Manual) Differential Comment Toxic Granulation Platelet Estimate Polychromasia Hypochromasia (manual) Anisocytosis (manual) Macrocytosis (manual) PT INR APTT Puncture Site L Line pCO2 118 H* 78 H* pO2 28 L* 38 L* HCO3 21.9 10.8 L ABG pH 7.05 L* 6.95 L* ABG Total CO2 36.2 H 19.5 L ABG O2 Saturation 35.2 L 59.7 L ABG Base Excess -1.4 -16.1 L Jordan Test Na Na ABG Potassium 5.3 H 3.3 L A-a O2 Difference 538.0 578.0 Respiratory Index 19.2 15.2 Sodium 145 152.0 H 155.0 H Chloride 110 H 111.0 H 119.0 H Glucose 54 L 93 Lactate 11.9 H* 10.3 H* Vent Mode Prvc Mechanical Rate 26 FiO2 100.0 100.0 Tidal Volume 600 PEEP 10 Crit Value Called To Dr binh purcell Crit Value Called By Jamaal schmitt geriatric case manager Jamaal schmitt geriatric case manager Crit Value Read Back Y Y Blood Gas Notified Time 750 815 Potassium 5.3 H Carbon Dioxide 24 Anion Gap 17 BUN 16 Creatinine 2.1 H Est GFR ( Amer) 40 Est GFR (Non-Af Amer) 33 POC Glucose (mg/dL) Random Glucose 97 Calcium 7.1 L Phosphorus 8.9 H Magnesium 2.1 Total Bilirubin 1.0 AST 154 H D ALT 54 Alkaline Phosphatase 117 Total Creatine Kinase CK-MB (Mass) Troponin I Total Protein 6.2 L Albumin 2.8 L Globulin 3.4 Albumin/Globulin Ratio 0.8 L Arterial Blood Potassium 5.3 H 3.3 L Blood Type Antibody Screen 07/11/17 07/11/17 07/11/17 08:41 08:41 08:42 WBC 18.2 H RBC 2.76 L Hgb 9.4 L D Hct 28.3 L MCV 102.7 H MCH 34.0 H MCHC 33.1 RDW 13.7 Plt Count 78 L MPV 8.2 Neut % (Auto) 82.4 H Lymph % (Auto) 11.2 L Mcclain % (Auto) 6.0 Eos % (Auto) 0.1 Baso % (Auto) 0.3 Neut # (Auto) 15.0 H Lymph # (Auto) 2.0 Mcclain # (Auto) 1.1 H Eos # (Auto) 0.0 Baso # (Auto) 0.0 Neutrophils % (Manual) Band Neutrophils % Lymphocytes % (Manual) Monocytes % (Manual) Differential Comment Toxic Granulation Platelet Estimate Polychromasia Hypochromasia (manual) Anisocytosis (manual) Macrocytosis (manual) PT INR APTT Puncture Site pCO2 pO2 HCO3 ABG pH ABG Total CO2 ABG O2 Saturation ABG Base Excess Jordan Test ABG Potassium A-a O2 Difference Respiratory Index Sodium 156 H Chloride 106 Glucose Lactate Vent Mode Mechanical Rate FiO2 Tidal Volume PEEP Crit Value Called To Crit Value Called By Crit Value Read Back Blood Gas Notified Time Potassium 4.2 Carbon Dioxide 27 Anion Gap 27 H BUN 17 Creatinine 2.6 H Est GFR ( Amer) 31 Est GFR (Non-Af Amer) 26 POC Glucose (mg/dL) 99 Random Glucose 97 Calcium 8.3 L Phosphorus 9.4 H Magnesium 2.5 H Total Bilirubin 0.9 AST 156 H ALT 44 Alkaline Phosphatase 74 Total Creatine Kinase CK-MB (Mass) Troponin I 11.6000 H* Total Protein 5.0 L Albumin 2.4 L Globulin 2.6 Albumin/Globulin Ratio 0.9 L Arterial Blood Potassium Blood Type Antibody Screen 07/11/17 09:00 WBC RBC Hgb Hct MCV MCH MCHC RDW Plt Count MPV Neut % (Auto) Lymph % (Auto) Mcclain % (Auto) Eos % (Auto) Baso % (Auto) Neut # (Auto) Lymph # (Auto) Mcclain # (Auto) Eos # (Auto) Baso # (Auto) Neutrophils % (Manual) Band Neutrophils % Lymphocytes % (Manual) Monocytes % (Manual) Differential Comment Toxic Granulation Platelet Estimate Polychromasia Hypochromasia (manual) Anisocytosis (manual) Macrocytosis (manual) PT INR APTT Puncture Site Line pCO2 92 H* pO2 33 L* HCO3 10.5 L ABG pH 6.91 L* ABG Total CO2 21.2 L ABG O2 Saturation 48.6 L ABG Base Excess -16.0 L Jordan Test Na ABG Potassium 2.9 L A-a O2 Difference 565.0 Respiratory Index 17.1 Sodium 156.0 H Chloride 118.0 H Glucose 64 L Lactate 13.7 H* Vent Mode Prvc Mechanical Rate 26 FiO2 100.0 Tidal Volume 600 PEEP 10 Crit Value Called To Dr nehemias purcell Crit Value Called By Dianna hickman reconditioner Crit Value Read Back Y Blood Gas Notified Time 904 Potassium Carbon Dioxide Anion Gap BUN Creatinine Est GFR ( Amer) Est GFR (Non-Af Amer) POC Glucose (mg/dL) Random Glucose Calcium Phosphorus Magnesium Total Bilirubin AST ALT Alkaline Phosphatase Total Creatine Kinase CK-MB (Mass) Troponin I Total Protein Albumin Globulin Albumin/Globulin Ratio Arterial Blood Potassium 2.9 L Blood Type Antibody Screen Assessment & Plan - Assessment and Plan (Free Text) Plan: Palliative consult Full Code, no advance directive on the chart, PPS 0% I reviewed medical recrds and all dagnstic studies. Exam was not possible as CPR was in progress. When I arrived to ICU at 9 am this morning, CPR was in progress for this man whose pulse was lost. The STAT ABGs were abnormal for acidosis, patient was retaining Co2 despite all aggressive measures. Patient was bleeding from the trach and nose. Doctor nehemias Purcell did not feel that continuing CPR any further was beneficial for the patient. I accompanied Doctor Nehemias Purcell to waiting room where he shared information with , daughter and brother in law. Eventhough overwhelmed by pain, shock and sorrow, family was united in decision that further interventions to be stopped. aid she did not want her to suffer any mote if meaningful recovery was not expected. I took family to private room and offer my support. At 9 : 10 am, patient's heart stopped beating. This news was delivered to family by Doctor Nehemias Purcell. I stayed with family and offered support until their Traveling Plant Operator came. Bereavement refreshment offered to a family. ME called and protocol fallowed. The option of autopsy discussed with family. Family refused. Family only wanted to visit patient for the last time when he was cleaned and presentable as they wanted to remember him in best possible way. This was shared with Nursing staff. signed POLST, choosing DNR/DNI and asked for ET tube to be removed. Impression * Anoxic injury, S/P cardiac arrest resulting in * Family in distress * Family decided to stop any further aggressive interventions including CPR and intubation * Family does not wish autopsy to be done * Suggestion * Support for family Advance care planing time 45 min
--- NOTE | 2017-07-11 11:46 | CP.PCM.PRO ---
Pronouncement of Note - Clinical Findings Physical Exam: No Response Verbal/Painful Stimuli, Absent Peripheral Pulses{ Carotid & Femoral}, Absent Heart & Breath Sounds, No Pupillary Light Reflex, Pupils Fixed & Dilated - Pronouncement Time Time of Pronouncement of : 09:10 - Notifications Pronouncement Notifications: Family Notified Twisting Frame Operator Notified: Yes
--- NOTE | 2017-07-11 11:51 | PCM.RRT ---
RUG INSPECTOR HELPER Nurses Assessment - Situation Date: 07/11/17 Time RUG INSPECTOR HELPER was called: 07:38 RUG INSPECTOR HELPER Responder Arrival Time:: 07:38 Room Number: Bed 5 - IC RUG INSPECTOR HELPER Called By: RN - IV IV Inserted during RUG INSPECTOR HELPER?: No - Respiratory RUG INSPECTOR HELPER Delivery Method: Intubated (Patient already Intubated) Secretions Suctioned?: Yes Was the Patient Intubated?: Yes (Patient Intubated on the Field Before Admission.) - Ventilator Settings Mode: PRVC Ventilator Respiratory Rate Settin Ventilator Tidal Volume Settin PEEP/CPAP (cm H2O): 10 SAO2 %: 91 FIO2 (% Oxygen): 100 - Diagnostic Test Ordered Chest X-Ray: Yes CT Scan: No - Stat Labs Ordered RUG INSPECTOR HELPER Stat Labs Ordered: CBC, BMP, PT/PTT, TROPONIN, ABG CPR started during RUG INSPECTOR HELPER?: Yes - Time RUG INSPECTOR HELPER Ended Time RUG INSPECTOR HELPER Ended: 09:10 - Vital Signs at end of RUG INSPECTOR HELPER Vital Signs at end of RUG INSPECTOR HELPER: Patient pronounced I.Reason for RUG INSPECTOR HELPER - A) Acute Change in Patient: Subjective: Code Blue Note: Code Nicholas called at 7:38 for PEA. 3 Codes called in all total. 2 A-lines started in between Codes Labs Ordered: CBC, CMP, Mg, Phos, ABG x 3, Troponins Imaging Ordered: ECHO, Portable CXR. Code # 1 Compressions started at 7:38 Epinephrine x 4, Epinephrine Drip started. 7 total Amps of Sodium Bicarb, 2 Amps of Calcium Gluconate, Lasix 80mg IV, Recuronium, D50 1 AMP Code # 2 Epinephrine IV x 2, 1 AMP Sodium Bicarb, 1 Amp Calcium Gluconate, Bumex x 3mg IV , Dobutamine Drip Started. Code #3 Paced Rhythym x 4, Epinephrine x 6, Calcium Gluconate x 1, Sodium Bicarb x 2, Magnesium x 1, D50x 1 Code Called at 9:10. Time of 9:10 AM. - Eyes Eye Exam: absent: PERRL - Respiratory Exam Additional comments: No Breath Sounds - Cardiovascular Exam Cardiovascular Exam: absent: +S1, +S2 Plan - Assessment of Findings&Treatment Plan Time of - 9:10
--- NOTE | 2017-07-11 13:18 | CP.PCM.DIS ---
Provider - Provider Date of Admission: 07/10/17 23:47 Attending physician: Umberto Swan MD Primary care physician: Giuseppe Keller MD Time Spent in preparation of Discharge (in minutes): 40 Hospital Course - Lab Results Lab Results: Most Recent Lab Values WBC 18.2 K/uL (4.8-10.8) H 07/11/17 08:41 RBC 2.76 Mil/uL (4.40-5.90) L 07/11/17 08:41 Hgb 9.4 g/dL (12.0-18.0) L D 07/11/17 08:41 Hct 28.3 % (35.0-51.0) L 07/11/17 08:41 MCV 102.7 fL (80.0-94.0) H 07/11/17 08:41 MCH 34.0 pg (27.0-31.0) H 07/11/17 08:41 MCHC 33.1 g/dL (33.0-37.0) 07/11/17 08:41 RDW 13.7 % (11.5-14.5) 07/11/17 08:41 Plt Count 78 K/uL (130-400) L 07/11/17 08:41 MPV 8.2 fL (7.2-11.7) 07/11/17 08:41 Neut % (Auto) 82.4 % (50.0-75.0) H 07/11/17 08:41 Lymph % (Auto) 11.2 % (20.0-40.0) L 07/11/17 08:41 Real % (Auto) 6.0 % (0.0-10.0) 07/11/17 08:41 Eos % (Auto) 0.1 % (0.0-4.0) 07/11/17 08:41 Baso % (Auto) 0.3 % (0.0-2.0) 07/11/17 08:41 Neut # (Auto) 15.0 K/uL (1.8-7.0) H 07/11/17 08:41 Lymph # (Auto) 2.0 K/uL (1.0-4.3) 07/11/17 08:41 Real # (Auto) 1.1 K/uL (0.0-0.8) H 07/11/17 08:41 Eos # (Auto) 0.0 K/uL (0.0-0.7) 07/11/17 08:41 Baso # (Auto) 0.0 K/uL (0.0-0.2) 07/11/17 08:41 Neutrophils % (Manual) 73 % (50-75) 07/11/17 05:53 Band Neutrophils % 15 % (0-2) H* 07/11/17 05:53 Lymphocytes % (Manual) 7 % (20-40) L 07/11/17 05:53 Monocytes % (Manual) 5 % (0-10) 07/11/17 05:53 Differential Comment 07/10/17 22:30 Toxic Granulation Present 07/11/17 05:53 Platelet Estimate Decreased (NORMAL) L 07/11/17 05:53 Polychromasia Slight 07/11/17 05:53 Hypochromasia (manual) Slight 07/11/17 05:53 Anisocytosis (manual) Slight 07/11/17 05:53 Macrocytosis (manual) Slight 07/11/17 05:53 PT 15.6 SECONDS (9.7-12.2) H 07/10/17 22:30 INR 1.4 07/10/17 22:30 APTT 82 SECONDS (21-34) H 07/10/17 22:30 Puncture Site Line 07/11/17 09:00 pCO2 92 mm/Hg (35-45) H* 07/11/17 09:00 pO2 33 mm/Hg (80-100) L* 07/11/17 09:00 HCO3 10.5 mmol/L (21-28) L 07/11/17 09:00 ABG pH 6.91 (7.35-7.45) L* 07/11/17 09:00 ABG Total CO2 21.2 mmol/L (22-28) L 07/11/17 09:00 ABG O2 Saturation 48.6 % (95-98) L 07/11/17 09:00 ABG Base Excess -16.0 mmol/L (-2.0-3.0) L 07/11/17 09:00 Jordan Test Na 07/11/17 09:00 ABG Potassium 2.9 mmol/L (3.6-5.2) L 07/11/17 09:00 A-a O2 Difference 565.0 mm/Hg 07/11/17 09:00 Respiratory Index 17.1 07/11/17 09:00 Sodium 156.0 mmol/l (132-148) H 07/11/17 09:00 Chloride 118.0 mmol/L (98-107) H 07/11/17 09:00 Glucose 64 mg/dl (75-110) L 07/11/17 09:00 Lactate 13.7 mmol/L (0.7-2.1) H* 07/11/17 09:00 Vent Mode Prvc 07/11/17 09:00 Mechanical Rate 26 07/11/17 09:00 FiO2 100.0 % 07/11/17 09:00 Tidal Volume 600 07/11/17 09:00 PEEP 10 07/11/17 09:00 Crit Value Called To Dr hardeep purcell 07/11/17 09:00 Crit Value Called By Dianna hickman electrical technology instructor 07/11/17 09:00 Crit Value Read Back Y 07/11/17 09:00 Blood Gas Notified Time 904 07/11/17 09:00 Sodium 156 mmol/L (132-148) H 07/11/17 08:41 Potassium 4.2 mmol/L (3.6-5.2) 07/11/17 08:41 Chloride 106 mmol/L (98-107) 07/11/17 08:41 Carbon Dioxide 27 mmol/L (22-30) 07/11/17 08:41 Anion Gap 27 (10-20) H 07/11/17 08:41 BUN 17 mg/dL (9-20) 07/11/17 08:41 Creatinine 2.6 mg/dL (0.8-1.5) H 07/11/17 08:41 Est GFR ( Amer) 31 07/11/17 08:41 Est GFR (Non-Af Amer) 26 07/11/17 08:41 POC Glucose (mg/dL) 99 mg/dL (65-110) 07/11/17 08:42 Random Glucose 97 mg/dL (75-110) 07/11/17 08:41 Calcium 8.3 mg/dl (8.6-10.4) L 07/11/17 08:41 Phosphorus 9.4 mg/dL (2.5-4.5) H 07/11/17 08:41 Magnesium 2.5 mg/dL (1.6-2.3) H 07/11/17 08:41 Total Bilirubin 0.9 mg/dL (0.2-1.3) 07/11/17 08:41 AST 156 U/L (17-59) H 07/11/17 08:41 ALT 44 U/L (21-72) 07/11/17 08:41 Alkaline Phosphatase 74 U/L (38-126) 07/11/17 08:41 Total Creatine Kinase 207 U/L (55-170) H 07/10/17 22:30 CK-MB (Mass) 3.18 ng/mL (0.0-3.38) 07/10/17 22:30 Troponin I 11.6000 ng/mL (0.00-0.120) H* 07/11/17 08:41 Total Protein 5.0 g/dL (6.3-8.3) L 07/11/17 08:41 Albumin 2.4 g/dL (3.5-5.0) L 07/11/17 08:41 Globulin 2.6 gm/dL (2.2-3.9) 07/11/17 08:41 Albumin/Globulin Ratio 0.9 (1.0-2.1) L 07/11/17 08:41 Arterial Blood Potassium 2.9 mmol/L (3.6-5.2) L 07/11/17 09:00 Blood Type O POSITIVE 07/10/17 22:30 Antibody Screen Negative 07/10/17 22:30 - Hospital Course Hospital Course: This is a 56 M brought to ER post cardiac arrest.As per EMS patient was found PEA to asystole, patient received 6 rounds of epi, intubated in the field. Patient needed to be reintubation in ER due loose cuff, with help or bugie. CO2 retention noticed, patient was bleeding from ET tube, has laceration on his right eye brow with swelling. Patient is unresponsive, brief irratic movements, no purposeful movements. Has minimal gag, bleeding from ET tube noticed, bright red. OG tube passed, bilious contents obtained. CXR shows b/l infiltrates dd of pulm aspiration, contusion. Labs showed elevated MCV and low platelets . According to was just bit tired form some fever and was on abx, has h/o enlarged heart but not on medications, got up from sleep to go for evening shift , got ready and then zoned out. Patient fell on the [place] cabinet and then face forward on the floor, the [place] and cabinet fell on the patient, he didn't respond, there was blood around. This happened about 9:05 pm, ems reached about 9:10pm. D/w intensive care physician .Patient's troponin is 11. His cardiac arrest is due to myocardial infarction. This high is not due to CPR Patient was coded multiple times at ICU.(See code sheets for details). ET tube revealed significant amount of blood Dr purcell intensive care discussed with the patient's family and . They wants to discontinue CPR and didn't want him to suffer. Patient at 9:10 . Family doesn't want autopsy. merchandise examiner was called by RN. certificate case # [id number] Discharge Exam - Head Exam Head Exam: NORMOCEPHALIC. absent: ATRAUMATIC, NORMAL INSPECTION Discharge Plan - Follow Up Plan Condition: CRITICAL Disposition: HOME/ ROUTINE Referrals: Non [facility] Provider, [Non-Staff] -
[2017-07-11 14:05] VITALS: PULSE 138; RESP 26; O2SAT 51
--- NOTE | 2017-07-11 18:01 | CARD ---
APPROVED REPORT EXAM: LIMITED Two-dimensional and M-mode echocardiogram with Doppler and color Doppler. Other Information Quality : LimitedRhythm : INDICATION Abnormal EKG/Arrhythmia Status/Post ND Code Blue/ Cardiac Arrest 2D DIMENSIONS IVSd1.6 (0.7-1.1cm)LVDd3.9 (3.9-5.9cm) PWd1.4 (0.7-1.1cm)LVDs1.8 (2.5-4.0cm) FS (%) 53.6 %LVEF (%)70.0 (>50%) M-Mode DIMENSIONS Left Atrium (MM)2.68 (2.5-4.0cm)Aortic Root4.03 (2.2-3.7cm) Aortic Cusp Exc.2.44 (1.5-2.0cm) Mitral Valve MV E Iwondrqb738.5cm/sE/A ratio0.0 TDI E/Lateral E'0.0E/Medial E'0.0 Tricuspid Valve TR Peak Felaxtml762db/sTR Peak Gr.[id number] LEFT VENTRICLE The left ventricle is normal size. There is mild concentric left ventricular hypertrophy. The left ventricular function is normal. The left ventricular ejection fraction is within the normal range. There is normal LV segmental wall motion. RIGHT VENTRICLE The right ventricle is mildly dilated. ATRIA The left atrium size is normal. The right atrium size is normal. AORTIC VALVE The aortic valve is normal in structure. MITRAL VALVE The mitral valve is normal in structure. TRICUSPID VALVE There is mild tricuspid regurgitation. <Conclusion> Technically difficult study. Normal LV systolic function. Borderline dilated RV. LVH. Mild TR.
--- NOTE | 2017-07-12 02:44 | CARD ---
APPROVED REPORT EKG Measurement Heart [id number] CT 216P [id number] <Conclusion> Sinus rhythm with 1st degree AV block Right bundle branch block Left anterior fascicular block Bifascicular block Possible Lateral infarct, age undetermined Abnormal ECG
== END 2017-07-11 10:40 ==
LOC: C.ER 22:06 → SUPCPDRO 22:06 → C.9I 23:47
PROVIDERS: ADMIT Family Medicine; ATTEND Family Medicine
PROC: 5A1935Z Respiratory Ventilation, Less than 24 Consecutive Hours (ICD-10-PCS; principal; 2017-07-10)
PROC: 03HY32Z Insertion of Monitoring Device into Upper Artery, Percutaneous Approach (ICD-10-PCS; 2017-07-10)
PROC: 4A133B1 Monitoring of Arterial Pressure, Peripheral, Percutaneous Approach (ICD-10-PCS; 2017-07-10)
PROC: 4A133J1 Monitoring of Arterial Pulse, Peripheral, Percutaneous Approach (ICD-10-PCS; 2017-07-10)
PROC: 05HM33Z Insertion of Infusion Device into Right Internal Jugular Vein, Percutaneous Approach (ICD-10-PCS; 2017-07-11)
PROC: 30233K1 Transfusion of Nonautologous Frozen Plasma into Peripheral Vein, Percutaneous Approach (ICD-10-PCS; 2017-07-11)
DX: I46.9 Cardiac arrest, cause unspecified (principal); S22.5XXA Flail chest, initial encounter for closed fracture; I21.9 Acute myocardial infarction, unspecified; E87.2 Acidosis; R09.02 Hypoxemia; I51.7 Cardiomegaly; R56.9 Unspecified convulsions; Z87.891 Personal history of nicotine dependence; S01.111A Laceration without foreign body of right eyelid and periocular area, initial encounter; W01.110A Fall on same level from slipping, tripping and stumbling with subsequent striking against sharp glass, initial encounter; Y92.008 Other place in unspecified non-institutional (private) residence as the place of occurrence of the external cause; Y99.8 Other external cause status; Z51.5 Encounter for palliative care; Z66 Do not resuscitate